=== PATIENT | female | born 1945 | race Caucasian/White ===

== ENCOUNTER → 2016-10-20 | Outpatient (CLI) | payer OTHER ==
[~2016-10-20] MED LIST: ALLO100T30 PO; ALLO300T PO; AMLO5TAB2 PO; ASPI-496 PO; ATOR40TA78 PO; ATOR80TA PO; BENICAR; CALC667C PO; CARV12.543 PO; CARV25TA12 PO; CHOL100015 PO; COLC0.6T37 PO; COREG; DARB100V SQ; ERGO500017 PO; FURO-92 PO; FURO-93 PO; FURO80TA3 PO; GLIP5TAB10 PO; HCTZ; HYDR-3240 PO; INSU100V12 SQ; INSU100V3 SQ-INSULIN; LEVO750T26 PO; LIRA0.6P2 SQ; LOSA50TA2 PO; METO5TAB5 PO; ONDA4TAB7 PO; OXYC-302 PO; POTA20TA14 PO; PREG75CA PO; SENN1TAB7 PO; SERT25TA PO; TORS20TA2 PO; TRAM50TA2 PO; VICTOZA PO; WARF2.5T PO; WARF5TAB PO; WARF7.5T PO
== END | disposition home or self-care (01) ==
LOC: CVU 12:16
PROVIDERS: ATTEND Nurse Practitioner Family
DX: I65.23 Occlusion and stenosis of bilateral carotid arteries (principal); I10 Essential (primary) hypertension; I25.2 Old myocardial infarction; Z95.5 Presence of coronary angioplasty implant and graft
CPT/HCPCS: 93880

== ENCOUNTER 2017-01-16 16:50 | Emergency (ER) | payer OTHER ==
[~2017-01-16] VITALS: Ht 152.4 cm; Wt 102.0 kg
[2017-01-16] MEDS ORDERED: SODIUM CHLORIDE FLUSH 10ML SYR IVF ONE (17:30)
[2017-01-16] MEDS ORDERED: LORazepam 2 MG/ML, 1ML IVPush ONE (17:30)
[2017-01-16] MEDS ORDERED: LORazepam 2 MG/ML, 1ML ONE (17:36)
[2017-01-16 17:39] LABS: BLOOD UREA NITROGEN 32 mg/dL (7-18)
[2017-01-16 17:43] LABS: ASPARTATE AMINO TRANSFERASE 25 U/L (15-37)
[2017-01-16 18:20] VITALS: BP 182/68
== END 2017-01-16 19:31 | disposition home or self-care (01) ==
LOC: ED 19:20
DX: R25.1 Tremor, unspecified (principal); F32.9 Major depressive disorder, single episode, unspecified; I12.9 Hypertensive chronic kidney disease with stage 1 through stage 4 chronic kidney disease, or unspecified chronic kidney disease; N18.4 Chronic kidney disease, stage 4 (severe); I11.0 Hypertensive heart disease with heart failure; I50.9 Heart failure, unspecified; E11.21 Type 2 diabetes mellitus with diabetic nephropathy; I25.2 Old myocardial infarction; Z99.2 Dependence on renal dialysis; Z86.718 Personal history of other venous thrombosis and embolism; Z86.73 Personal history of transient ischemic attack (TIA), and cerebral infarction without residual deficits; Z85.42 Personal history of malignant neoplasm of other parts of uterus; Z88.6 Allergy status to analgesic agent; Z88.5 Allergy status to narcotic agent
CPT/HCPCS: 36415; 71010; 80053; 83735; 85025; 93005; 96374; 99285; J2060

== ENCOUNTER → 2017-01-19 | Outpatient (CLI) | payer OTHER | END | disposition home or self-care (01) | LOC: CFH 12:08 | PROVIDERS: ATTEND Nurse Practitioner | DX: R91.8 Other nonspecific abnormal finding of lung field (principal); J96.11 Chronic respiratory failure with hypoxia | CPT/HCPCS: 71250 ==

== ENCOUNTER 2017-02-18 19:08 | Emergency (ER) | payer OTHER ==
[~2017-02-18] VITALS: Ht 152.4 cm; Wt 101.3 kg
[2017-02-18 20:50] LABS: BLOOD UREA NITROGEN 38 mg/dL (7-18)
[2017-02-18 20:51] LABS: HEMOGLOBIN 10.1 g/dL (11.7-16.4); WHITE BLOOD COUNT 5.9 x10^3/uL (3.4-10)
[2017-02-18 21:40] VITALS: BP 151/38
== END 2017-02-18 21:42 | disposition home or self-care (01) ==
LOC: ED 21:05
DX: K92.1 Melena (principal); D62 Acute posthemorrhagic anemia; I12.0 Hypertensive chronic kidney disease with stage 5 chronic kidney disease or end stage renal disease; D63.1 Anemia in chronic kidney disease; N18.6 End stage renal disease; M10.9 Gout, unspecified; I25.10 Atherosclerotic heart disease of native coronary artery without angina pectoris; Z79.82 Long term (current) use of aspirin; Z90.710 Acquired absence of both cervix and uterus
CPT/HCPCS: 36415; 80048; 82040; 85025; 85610; 99284

== ENCOUNTER 2017-08-23 10:41 | Day surgery (SDC) | payer OTHER ==
[~2017-08-23] VITALS: Ht 154.9 cm; Wt 102.3 kg
[2017-08-23] MEDS ORDERED: SODIUM CHLORIDE 0.9% 1,000 ML IV SCH (11:18)
[2017-08-23] MEDS ORDERED: FUROSEMIDE PO (11:25)
[2017-08-23] MEDS ORDERED: FUROSE (11:25)
[2017-08-23] MEDS ORDERED: LANTUS SQ (11:25)
[2017-08-23] MEDS ORDERED: METOLAZONE PO (11:25)
[2017-08-23] MEDS ORDERED: LIDOCAINE 1%, 2ML SQ PRN (11:30)
[2017-08-23] MEDS ORDERED: COUMADIN PO ×2 (11:32)
[2017-08-23 11:42] VITALS: BP 115/63
[2017-08-23 12:24] LABS: ALBUMIN 3.1 g/dL (3.4-5.0); ANION GAP 12 mmol/L (5-15); CALCIUM 8.3 mg/dL (8.5-10.1); CHLORIDE 97 mmol/L (98-107)
[2017-08-23 12:28] LABS: ALANINE AMINOTRANSFERASE 18 U/L (12-78); ALKALINE PHOSPHATASE 73 U/L (45-117); BILIRUBIN,TOTAL 0.6 mg/dL (0.2-1.0); CREATININE 6.39 mg/dL (0.55-1.02); TOTAL PROTEIN 6.9 g/dL (6.4-8.2)
[2017-08-23] MEDS ORDERED: FENTANYL PF 100 MCG/2ML IV PRN (12:30)
[2017-08-23] MEDS ORDERED: ONDANSETRON 2MG/ML, 2ML IVPush PRN (12:30)
[2017-08-23] MEDS ORDERED: FENTANYL PF 100 MCG/2ML ONE (13:32)
[2017-08-23] MEDS ORDERED: PROPOFOL 10 MG/ML, 20ML ONE (15:38)
== END 2017-08-23 15:00 ==
LOC: OUT 10:41
PROVIDERS: ATTEND Internal Medicine
DX: K57.30 Diverticulosis of large intestine without perforation or abscess without bleeding (principal); K92.1 Melena; D50.8 Other iron deficiency anemias; K64.8 Other hemorrhoids; I12.0 Hypertensive chronic kidney disease with stage 5 chronic kidney disease or end stage renal disease; N18.6 End stage renal disease; Z99.2 Dependence on renal dialysis; E11.22 Type 2 diabetes mellitus with diabetic chronic kidney disease; Z79.899 Other long term (current) drug therapy; Z79.4 Long term (current) use of insulin; Z90.710 Acquired absence of both cervix and uterus; Z98.890 Other specified postprocedural states; Z88.5 Allergy status to narcotic agent; Z88.8 Allergy status to other drugs, medicaments and biological substances; K21.9 Gastro-esophageal reflux disease without esophagitis; I25.10 Atherosclerotic heart disease of native coronary artery without angina pectoris; E66.01 Morbid (severe) obesity due to excess calories; Z68.41 Body mass index [BMI] 40.0-44.9, adult
CPT/HCPCS: 36415; 45378; 80053; 82962; 93005; J2704; J3010; J7030

== ENCOUNTER 2017-09-19 02:47 | Inpatient (IN) | payer OTHER ==
[2017-09-19] VITALS (7 sets, daily range): BP systolic 93–168; BP diastolic 55–77
[~2017-09-19] VITALS: Ht 154.9 cm; Wt 101.9 kg
[~2017-09-19 02:47] MED LIST changes: +COUMADIN PO; +FUROSE; +FUROSEMIDE PO; +LANTUS SQ; +METOLAZONE PO
[2017-09-19] MEDS ORDERED: ALBUTEROL SULFATE 2.5 MG/3 ML ONE ×2 (02:54→04:46)
[2017-09-19] MEDS ORDERED: ALBUTEROL/IPRATROPIUM 2.5MG/0.5MG, 3 ML ONE (02:54)
[2017-09-19] MEDS ORDERED: SODIUM CHLORIDE FLUSH 10ML SYR IVF ONE (03:00)
[2017-09-19] MEDS ORDERED: ALBUTEROL/IPRATROPIUM 2.5MG/0.5MG, 3 ML NPPB ONE (03:00)
[2017-09-19] MEDS ORDERED: ALBUTEROL SULFATE 2.5 MG/3 ML NPPB ONE ×2 (03:00→05:00)
[2017-09-19 03:09] LABS: BASOPHILS % (AUTO) 0 % (0-1); EOSINOPHILS # (AUTO) 0.09 x10^3/uL (0-0.4); EOSINOPHILS % (AUTO) 1 % (1-7); LYMPHOCYTES # (AUTO) 0.56 x10^3/uL (1-3.4); LYMPHOCYTES % (AUTO) 7 % (22-44); MD NO; MEAN CORPUSCULAR HEMOGLOBIN 33.6 pg (27.0-34.8); MEAN CORPUSCULAR VOLUME 98.9 fL (80-100); MEAN PLATELET VOLUME 9.4 fL (7.4-10.4); MONOCYTES % (AUTO) 7 % (2-9); NEUTROPHILS # (AUTO) 7.05 x10^3/uL (1.8-6.8); NEUTROPHILS % (AUTO) 85 % (42-75); PLATELET COUNT 112 x10^3/uL (130-400); RED BLOOD COUNT 3.53 x10^6/uL (3.82-5.3); RED CELL DISTRIBUTION WIDTH 15.4 % (9.6-15.2)
[2017-09-19 03:19] LABS: INTERNATIONAL NORMALIZED RATIO 2.28 (0.93-1.1); PROTHROMBIN TIME 23.3 Seconds (9.6-11.5)
[2017-09-19 03:21] LABS: ALANINE AMINOTRANSFERASE 22 U/L (12-78); ANION GAP 10 mmol/L (5-15); CALCIUM 7.6 mg/dL (8.5-10.1); CHLORIDE 94 mmol/L (98-107); CREATININE 9.36 mg/dL (0.55-1.02)
[2017-09-19 03:26] LABS: ALKALINE PHOSPHATASE 124 U/L (45-117); BILIRUBIN,TOTAL 0.4 mg/dL (0.2-1.0); TOTAL PROTEIN 7.4 g/dL (6.4-8.2); TROPONIN I 0.064 ng/mL (0.000-0.045)
[2017-09-19] MEDS ORDERED: methylPREDNISolone SOD SUCC 125 MG/2 ML IVPush ONE (03:30)
[2017-09-19] MEDS ORDERED: methylPREDNISolone SOD SUCC 125 MG/2 ML ONE (03:30)
[2017-09-19] MEDS ORDERED: INSULIN REGULAR 100 UNITS/ML, 3ML VIAL ONE (03:56)
[2017-09-19] MEDS ORDERED: SODIUM CHLORIDE 0.9%, 500ML IVBOLUS ONE (04:00)
[2017-09-19] MEDS ORDERED: INSULIN REGULAR 100 UNITS/ML, 3ML VIAL IVPush ONE (04:00)
[2017-09-19 04:27] LABS: ACETONE, SERUM Trace (10mg/dL) mg/dL (Negative)
[2017-09-19 05:36] LABS: ANION GAP 9 mmol/L (5-15); CALCIUM 7.6 mg/dL (8.5-10.1); CHLORIDE 99 mmol/L (98-107); CREATININE 9.58 mg/dL (0.55-1.02)
[2017-09-19] MEDS ORDERED: ALPR0.5T PO (06:08)
[2017-09-19] MEDS ORDERED: ONDANSETRON ODT 4 MG PO PRN (08:30)
[2017-09-19] MEDS ORDERED: FUROSEMIDE PO SCH (09:00)
[2017-09-19] MEDS ORDERED: METOLAZONE PO SCH (09:00)
[2017-09-19] MEDS: [UNRECOGNIZED DRUG - REMARK] MC SCH ×2 (09:30→16:27)
[2017-09-19] MEDS: CARVEDILOL 25 MG TABLET PO SCH ×2 (09:41→22:26)
[2017-09-19] MEDS: PREGABALIN 75 MG CAPSULE PO SCH (09:41)
[2017-09-19] MEDS: AMLODIPINE 5 MG TABLET PO SCH (09:41)
[2017-09-19] MEDS: SERTRALINE 50MG TABLET PO SCH (09:42)
[2017-09-19] MEDS: DOXYCYCLINE 100MG TABLET PO SCH ×2 (09:42→21:00)
[2017-09-19] MEDS: INSULIN GLARGINE 100 UNITS/ML, PEN SQ-INSULIN SCH ×2 (09:44→21:00)
[2017-09-19] MEDS: ASPIRIN 81 MG TABLET EC PO SCH (09:46)
[2017-09-19 11:00] LABS: HEMOGLOBIN A1C 8.4 % (4.2-6.3)
[2017-09-19] MEDS: INSULIN LISPRO 100 UNITS/ML, PEN SQ-INSULIN SCH ×3 (11:56→21:00)
[2017-09-19] MEDS ORDERED: FUROSEMIDE 40 MG/4 ML IV ONE (17:30)
[2017-09-19] MEDS ORDERED: METOLAZONE 5 MG TABLET PO ONE (17:30)
[2017-09-19] MEDS ORDERED: WARFARIN 7.5 MG TABLET PO-COUM ONE (18:00)
[2017-09-19] MEDS: ATORVASTATIN 80 MG TABLET PO SCH (21:00)
[2017-09-19] MEDS ORDERED: NITROGLYCERIN 0.4 MG BOTTLE (25 TABS) SL PRN (22:00)
[2017-09-20 05:53] VITALS: BP 143/72
[2017-09-20] MEDS: ASPIRIN 81 MG TABLET EC PO SCH (05:55)
[2017-09-20 06:00] LABS: BASOPHILS % (AUTO) 0 % (0-1); EOSINOPHILS % (AUTO) 0 % (1-7); LYMPHOCYTES # (AUTO) 0.38 x10^3/uL (1-3.4); LYMPHOCYTES % (AUTO) 5 % (22-44); MD NO; MEAN CORPUSCULAR HEMOGLOBIN 33.8 pg (27.0-34.8); MEAN CORPUSCULAR HGB CONC 33.9 g/dL (32.4-35.8); MEAN CORPUSCULAR VOLUME 99.9 fL (80-100); MEAN PLATELET VOLUME 9.4 fL (7.4-10.4); MONOCYTES # (AUTO) 0.58 x10^3/uL (0.2-0.8); MONOCYTES % (AUTO) 7 % (2-9); NEUTROPHILS # (AUTO) 7.05 x10^3/uL (1.8-6.8); NEUTROPHILS % (AUTO) 88 % (42-75); PLATELET COUNT 110 x10^3/uL (130-400); RED BLOOD COUNT 3.14 x10^6/uL (3.82-5.3); RED CELL DISTRIBUTION WIDTH 16.1 % (9.6-15.2)
[2017-09-20 06:05] LABS: INTERNATIONAL NORMALIZED RATIO 1.66 (0.93-1.1); PROTHROMBIN TIME 17.1 Seconds (9.6-11.5)
[2017-09-20 06:10] LABS: ALBUMIN 2.8 g/dL (3.4-5.0); ANION GAP 8 mmol/L (5-15); CHLORIDE 97 mmol/L (98-107); CHOLESTEROL, TOTAL 137 mg/dL (140-239); TRIGLYCERIDES 128 mg/dL (50-200); VLDL CHOLESTEROL 26 mg/dL (0-25)
[2017-09-20 06:21] LABS: % IRON SATURATION 44 % (20-55); ALANINE AMINOTRANSFERASE 21 U/L (12-78); ALKALINE PHOSPHATASE 85 U/L (45-117); BILIRUBIN,TOTAL 0.4 mg/dL (0.2-1.0); CHOL/HDL RATIO 3.3; CREATININE 7.03 mg/dL (0.55-1.02); HDL CHOL % 31 % (28-40); HDL CHOLESTEROL (DIRECT) 42 mg/dL (40-60); IRON LEVEL 74 mcg/dL (50-170); LDL CHOLESTEROL,CALCULATED 69 mg/dL (54-169); LDL/HDL RATIO 1.6 (0.5-3.0); THYROID STIMULATING HORMONE 0.688 mIU/L (0.358-3.740); TOTAL IRON BINDING CAPACITY 167 mcg/dL (250-450); TOTAL PROTEIN 6.9 g/dL (6.4-8.2)
[2017-09-20 07:22] VITALS: BP 133/72
[2017-09-20] MEDS: CARVEDILOL 25 MG TABLET PO SCH ×2 (08:55→21:43)
[2017-09-20] MEDS: DOXYCYCLINE 100MG TABLET PO SCH ×2 (08:56→21:43)
[2017-09-20] MEDS: SERTRALINE 50MG TABLET PO SCH (08:56)
[2017-09-20] MEDS: AMLODIPINE 5 MG TABLET PO SCH (08:56)
[2017-09-20] MEDS: INSULIN LISPRO 100 UNITS/ML, PEN SQ-INSULIN SCH ×4 (08:56→21:42)
[2017-09-20] MEDS: PREGABALIN 75 MG CAPSULE PO SCH (08:56)
[2017-09-20] MEDS: INSULIN GLARGINE 100 UNITS/ML, PEN SQ-INSULIN SCH ×2 (08:57→21:42)
[2017-09-20] MEDS ORDERED: ERGOCALCIFEROL 50,000 UNIT CAPSULE PO SCH (09:00)
[2017-09-20] MEDS: FUROSEMIDE 20 MG/2 ML IV SCH ×2 (09:17→21:43)
[2017-09-20] MEDS ORDERED: ACETAMINOPHEN 325 MG TABLET ONE (10:46)
[2017-09-20] MEDS: ACETAMINOPHEN 325 MG TABLET PO PRN (11:20)
[2017-09-20 12:53] VITALS: BP 126/70
[2017-09-20] MEDS ORDERED: WARFARIN 10 MG TABLET PO-COUM ONE (18:00)
[2017-09-20 18:40] VITALS: BP_SYST 88; BP_SYST 95; BP_DIAS 48; BP_DIAS 63
[2017-09-20] MEDS: ATORVASTATIN 80 MG TABLET PO SCH (21:43)
[2017-09-20] MEDS: FLUTICASONE NASAL SPRAY 16GM NAS SCH (22:41)
[2017-09-21 00:52] VITALS: BP 116/69
[2017-09-21] MEDS: ALBUTEROL SULFATE 2.5 MG/3 ML NPPB PRN ×2 (05:20→20:05)
[2017-09-21 05:21] LABS: BASOPHILS # (AUTO) 0.02 x10^3/uL (0-0.1); BASOPHILS % (AUTO) 0 % (0-1); EOSINOPHILS # (AUTO) 0.07 x10^3/uL (0-0.4); EOSINOPHILS % (AUTO) 1 % (1-7); LYMPHOCYTES # (AUTO) 0.81 x10^3/uL (1-3.4); LYMPHOCYTES % (AUTO) 14 % (22-44); MD NO; MEAN CORPUSCULAR HGB CONC 34.3 g/dL (32.4-35.8); MEAN CORPUSCULAR VOLUME 98.9 fL (80-100); MEAN PLATELET VOLUME 9.2 fL (7.4-10.4); MONOCYTES # (AUTO) 0.74 x10^3/uL (0.2-0.8); MONOCYTES % (AUTO) 13 % (2-9); NEUTROPHILS % (AUTO) 71 % (42-75); PLATELET COUNT 114 x10^3/uL (130-400); RED BLOOD COUNT 3.06 x10^6/uL (3.82-5.3)
[2017-09-21 05:31] LABS: ALBUMIN 2.8 g/dL (3.4-5.0); CHLORIDE 98 mmol/L (98-107)
[2017-09-21 05:37] LABS: ALANINE AMINOTRANSFERASE 19 U/L (12-78); ALKALINE PHOSPHATASE 77 U/L (45-117); ANION GAP 10 mmol/L (5-15); BILIRUBIN,TOTAL 0.4 mg/dL (0.2-1.0); CALCIUM 7.9 mg/dL (8.5-10.1); CREATININE 8.78 mg/dL (0.55-1.02); TOTAL PROTEIN 6.5 g/dL (6.4-8.2)
[2017-09-21] MEDS: ASPIRIN 81 MG TABLET EC PO SCH (06:10)
[2017-09-21 07:50] VITALS: BP 139/66
[2017-09-21] MEDS: INSULIN LISPRO 100 UNITS/ML, PEN SQ-INSULIN SCH ×4 (08:00→21:32)
[2017-09-21] MEDS ORDERED: REGADENOSON 0.4 MG/5 ML SYRINGE ONE (08:03)
[2017-09-21] MEDS: FUROSEMIDE 20 MG/2 ML IV SCH ×2 (09:00→21:30)
[2017-09-21] MEDS: AMLODIPINE 5 MG TABLET PO SCH (10:37)
[2017-09-21] MEDS: CARVEDILOL 25 MG TABLET PO SCH ×2 (10:37→22:21)
[2017-09-21] MEDS: SERTRALINE 50MG TABLET PO SCH (10:37)
[2017-09-21] MEDS: DOXYCYCLINE 100MG TABLET PO SCH ×2 (10:37→22:21)
[2017-09-21] MEDS: PREGABALIN 75 MG CAPSULE PO SCH (10:37)
[2017-09-21] MEDS: INSULIN GLARGINE 100 UNITS/ML, PEN SQ-INSULIN SCH ×2 (10:37→22:23)
[2017-09-21] MEDS: FLUTICASONE NASAL SPRAY 16GM NAS SCH (10:41)
[2017-09-21 15:00] VITALS: BP 122/45
[2017-09-21 18:55] LABS: INTERNATIONAL NORMALIZED RATIO 1.98 (0.93-1.1); PROTHROMBIN TIME 20.3 Seconds (9.6-11.5)
[2017-09-21 21:00] VITALS: BP 119/70
[2017-09-21] MEDS ORDERED: MAALOX/HYOSCYAMINE/LIDOCAINE 45 ML BTL PO ONE (22:00)
[2017-09-21] MEDS: BENZONATATE 100 MG CAPSULE PO PRN (22:20)
[2017-09-21] MEDS: ATORVASTATIN 80 MG TABLET PO SCH (22:21)
[2017-09-22 01:09] VITALS: BP 123/71
[2017-09-22 06:16] LABS: BASOPHILS # (AUTO) 0.02 x10^3/uL (0-0.1); BASOPHILS % (AUTO) 0 % (0-1); EOSINOPHILS % (AUTO) 2 % (1-7); LYMPHOCYTES # (AUTO) 0.95 x10^3/uL (1-3.4); LYMPHOCYTES % (AUTO) 17 % (22-44); MD NO; MEAN CORPUSCULAR HEMOGLOBIN 34.1 pg (27.0-34.8); MEAN CORPUSCULAR HGB CONC 34.6 g/dL (32.4-35.8); MEAN CORPUSCULAR VOLUME 98.7 fL (80-100); MEAN PLATELET VOLUME 8.8 fL (7.4-10.4); MONOCYTES # (AUTO) 0.78 x10^3/uL (0.2-0.8); MONOCYTES % (AUTO) 14 % (2-9); NEUTROPHILS # (AUTO) 3.76 x10^3/uL (1.8-6.8); NEUTROPHILS % (AUTO) 67 % (42-75); PLATELET COUNT 109 x10^3/uL (130-400); RED BLOOD COUNT 3.05 x10^6/uL (3.82-5.3); RED CELL DISTRIBUTION WIDTH 15.8 % (9.6-15.2)
[2017-09-22 06:22] LABS: INTERNATIONAL NORMALIZED RATIO 2.1 (0.93-1.1); PROTHROMBIN TIME 21.5 Seconds (9.6-11.5)
[2017-09-22 06:25] LABS: ALBUMIN 2.6 g/dL (3.4-5.0); ANION GAP 8 mmol/L (5-15); CALCIUM 7.6 mg/dL (8.5-10.1); CHLORIDE 100 mmol/L (98-107); CREATININE 6.12 mg/dL (0.55-1.02)
[2017-09-22] MEDS: ASPIRIN 81 MG TABLET EC PO SCH (06:27)
[2017-09-22] MEDS: ACETAMINOPHEN 325 MG TABLET PO PRN (06:27)
[2017-09-22 08:00] VITALS: BP 148/68
[2017-09-22] MEDS: FLUTICASONE NASAL SPRAY 16GM NAS SCH (09:00)
[2017-09-22] MEDS: INSULIN GLARGINE 100 UNITS/ML, PEN SQ-INSULIN SCH ×2 (09:00→20:50)
[2017-09-22] MEDS: INSULIN LISPRO 100 UNITS/ML, PEN SQ-INSULIN SCH ×4 (10:11→20:51)
[2017-09-22] MEDS: FUROSEMIDE 20 MG/2 ML IV SCH ×2 (10:13→20:35)
[2017-09-22] MEDS: PREGABALIN 75 MG CAPSULE PO SCH (10:14)
[2017-09-22] MEDS: SERTRALINE 50MG TABLET PO SCH (10:15)
[2017-09-22] MEDS: AMLODIPINE 5 MG TABLET PO SCH (10:16)
[2017-09-22] MEDS: DOXYCYCLINE 100MG TABLET PO SCH ×2 (10:16→20:36)
[2017-09-22] MEDS: CARVEDILOL 25 MG TABLET PO SCH ×2 (12:45→20:52)
[2017-09-22 14:00] VITALS: BP 117/46
[2017-09-22] MEDS ORDERED: WARFARIN 5 MG TABLET PO-COUM ONE (18:00)
[2017-09-22 18:33] VITALS: BP 119/68
[2017-09-22] MEDS: BENZONATATE 100 MG CAPSULE PO PRN (20:36)
[2017-09-22] MEDS: ATORVASTATIN 80 MG TABLET PO SCH (20:36)
[2017-09-23 00:34] VITALS: BP 134/50
[2017-09-23] MEDS: ACETAMINOPHEN 325 MG TABLET PO PRN (04:14)
[2017-09-23] MEDS: ASPIRIN 81 MG TABLET EC PO SCH (04:14)
[2017-09-23 05:23] LABS: INTERNATIONAL NORMALIZED RATIO 2.29 (0.93-1.1); PROTHROMBIN TIME 23.4 Seconds (9.6-11.5)
[2017-09-23 05:25] LABS: ALBUMIN 2.6 g/dL (3.4-5.0); ANION GAP 10 mmol/L (5-15); CALCIUM 7.5 mg/dL (8.5-10.1); CHLORIDE 97 mmol/L (98-107); CREATININE 7.79 mg/dL (0.55-1.02)
[2017-09-23 05:31] LABS: BASOPHILS # (AUTO) 0.02 x10^3/uL (0-0.1); BASOPHILS % (AUTO) 0 % (0-1); EOSINOPHILS % (AUTO) 4 % (1-7); LYMPHOCYTES # (AUTO) 1.06 x10^3/uL (1-3.4); LYMPHOCYTES % (AUTO) 20 % (22-44); MD NO; MEAN CORPUSCULAR HEMOGLOBIN 33.1 pg (27.0-34.8); MEAN CORPUSCULAR HGB CONC 33.9 g/dL (32.4-35.8); MEAN CORPUSCULAR VOLUME 97.7 fL (80-100); MEAN PLATELET VOLUME 9.3 fL (7.4-10.4); MONOCYTES # (AUTO) 0.61 x10^3/uL (0.2-0.8); MONOCYTES % (AUTO) 11 % (2-9); NEUTROPHILS % (AUTO) 65 % (42-75); PLATELET COUNT 110 x10^3/uL (130-400); RED BLOOD COUNT 3.14 x10^6/uL (3.82-5.3); RED CELL DISTRIBUTION WIDTH 15.6 % (9.6-15.2)
[2017-09-23] MEDS: BENZONATATE 100 MG CAPSULE PO PRN (06:39)
[2017-09-23 07:30] VITALS: BP 116/73
[2017-09-23] MEDS: CARVEDILOL 25 MG TABLET PO SCH (08:21)
[2017-09-23] MEDS: FUROSEMIDE 20 MG/2 ML IV SCH (08:21)
[2017-09-23] MEDS: AMLODIPINE 5 MG TABLET PO SCH (08:21)
[2017-09-23] MEDS: SERTRALINE 50MG TABLET PO SCH (08:26)
[2017-09-23] MEDS: PREGABALIN 75 MG CAPSULE PO SCH (08:26)
[2017-09-23] MEDS: DOXYCYCLINE 100MG TABLET PO SCH (08:26)
[2017-09-23] MEDS: INSULIN GLARGINE 100 UNITS/ML, PEN SQ-INSULIN SCH (08:27)
[2017-09-23] MEDS: FLUTICASONE NASAL SPRAY 16GM NAS SCH (08:28)
[2017-09-23] MEDS: INSULIN LISPRO 100 UNITS/ML, PEN SQ-INSULIN SCH ×2 (08:28→11:00)
[2017-09-23] MEDS ORDERED: DOXY100T PO (13:50)
[2017-09-23] MEDS ORDERED: ASPI-621 PO (13:50)
[2017-09-23] MEDS ORDERED: ERGO500017 PO (13:50)
[2017-09-23] MEDS ORDERED: WARFARIN 5 MG TABLET PO-COUM ONE (18:00)
== END 2017-09-23 15:12 | disposition home or self-care (01) | DRG 280 ==
LOC: ED 03:45 → EDIP 05:08 → 5SO 05:51
PROVIDERS: ADMIT Internal Medicine; ATTEND Internal Medicine
PROC: 5A1D70Z Performance of Urinary Filtration, Intermittent, Less than 6 Hours Per Day (ICD-10-PCS; principal; 2017-09-19)
PROC: 5A1D70Z Performance of Urinary Filtration, Intermittent, Less than 6 Hours Per Day (ICD-10-PCS; 2017-09-21)
PROC: 5A1D70Z Performance of Urinary Filtration, Intermittent, Less than 6 Hours Per Day (ICD-10-PCS; 2017-09-23)
DX: I13.2 Hypertensive heart and chronic kidney disease with heart failure and with stage 5 chronic kidney disease, or end stage renal disease (principal); J96.21 Acute and chronic respiratory failure with hypoxia; I21.4 Non-ST elevation (NSTEMI) myocardial infarction; E44.0 Moderate protein-calorie malnutrition; D68.69 Other thrombophilia; D69.6 Thrombocytopenia, unspecified; E11.21 Type 2 diabetes mellitus with diabetic nephropathy; N18.6 End stage renal disease; I50.33 Acute on chronic diastolic (congestive) heart failure; E87.2 Acidosis; E87.1 Hypo-osmolality and hyponatremia; Z68.41 Body mass index [BMI] 40.0-44.9, adult; N25.81 Secondary hyperparathyroidism of renal origin; J44.1 Chronic obstructive pulmonary disease with (acute) exacerbation; E11.22 Type 2 diabetes mellitus with diabetic chronic kidney disease; C54.1 Malignant neoplasm of endometrium; I25.10 Atherosclerotic heart disease of native coronary artery without angina pectoris; D63.1 Anemia in chronic kidney disease; E11.51 Type 2 diabetes mellitus with diabetic peripheral angiopathy without gangrene; E11.65 Type 2 diabetes mellitus with hyperglycemia; N25.0 Renal osteodystrophy; J11.1 Influenza due to unidentified influenza virus with other respiratory manifestations; M10.9 Gout, unspecified; E66.01 Morbid (severe) obesity due to excess calories; E78.5 Hyperlipidemia, unspecified; E86.1 Hypovolemia; E87.5 Hyperkalemia; Z99.81 Dependence on supplemental oxygen; Z99.2 Dependence on renal dialysis; Z98.84 Bariatric surgery status; Z95.820 Peripheral vascular angioplasty status with implants and grafts; Z95.5 Presence of coronary angioplasty implant and graft; Z90.3 Acquired absence of stomach [part of]; Z87.891 Personal history of nicotine dependence; Z87.441 Personal history of nephrotic syndrome; Z90.710 Acquired absence of both cervix and uterus; Z87.01 Personal history of pneumonia (recurrent); Z79.01 Long term (current) use of anticoagulants; Z79.4 Long term (current) use of insulin; Z85.42 Personal history of malignant neoplasm of other parts of uterus; Z86.711 Personal history of pulmonary embolism; Z86.718 Personal history of other venous thrombosis and embolism; I25.2 Old myocardial infarction; Z79.899 Other long term (current) drug therapy; Z79.82 Long term (current) use of aspirin
CPT/HCPCS: 36415; 36600; 71045; 78452; 80048; 80053; 80061; 80069; 82010; 82306; 82728; 82800; 82803; 82947; 82962; 83036; 83540; 83550; 83605; 83735; 83880; 83970; 84100; 84443; 84484; 84550; 85025; 85610; 85730; 87081; 87880; 93005; 93017; 93306; 94640; 96361; 96374; 96375; J1940; J2785; J7613; J7620; A9502; C9898; J1815; J2930; J7040

== ENCOUNTER 2017-11-06 13:12 | Inpatient (IN) | payer OTHER ==
[~2017-11-06] VITALS: Ht 154.9 cm; Wt 93.1 kg
[~2017-11-06 13:12] MED LIST changes: +ACET325T14 PO; +ALPR0.5T PO; +ASPI-621 PO; +BISA10SU65 PR; +CARV6.2512 PO; +DARB60VI SQ; +DOXY100T PO; +INSU100I11 SQ-INSULIN; +INSU100I13 SQ-INSULIN; +INSU100V3 SQ; +LOSA25TA2 PO; +LOSA50TA6 PO; +NITROGLYCERIN; +OMEP-110 PO; +ONDA4TAB13 PO; +PANTOPRA; +PANTOPRAZOLE; +POLY17PO5 PO; +SERT50TA PO; +SEVE800T7 PO; +TICA90TA PO; +TRAZODONE; +WARF5TAB PO-COUM; +Warfarin Maintenance Protocol XX
[2017-11-06 14:21] LABS: BASOPHILS # (AUTO) 0.02 x10^3/uL (0-0.1); BASOPHILS % (AUTO) 0 % (0-1); EOSINOPHILS # (AUTO) 0.09 x10^3/uL (0-0.4); EOSINOPHILS % (AUTO) 1 % (1-7); LYMPHOCYTES # (AUTO) 0.76 x10^3/uL (1-3.4); LYMPHOCYTES % (AUTO) 8 % (22-44); MD NO; MEAN CORPUSCULAR HEMOGLOBIN 34.2 pg (27.0-34.8); MEAN CORPUSCULAR HGB CONC 34.5 g/dL (32.4-35.8); MEAN CORPUSCULAR VOLUME 99.2 fL (80-100); MEAN PLATELET VOLUME 7.7 fL (7.4-10.4); MONOCYTES # (AUTO) 0.57 x10^3/uL (0.2-0.8); MONOCYTES % (AUTO) 6 % (2-9); NEUTROPHILS # (AUTO) 8.11 x10^3/uL (1.8-6.8); NEUTROPHILS % (AUTO) 85 % (42-75); PLATELET COUNT 221 x10^3/uL (130-400); RED BLOOD COUNT 2.87 x10^6/uL (3.82-5.3)
[2017-11-06 14:32] LABS: ALBUMIN 2.9 g/dL (3.4-5.0); ANION GAP 14 mmol/L (5-15); CALCIUM 8.6 mg/dL (8.5-10.1); CHLORIDE 96 mmol/L (98-107); CREATININE 9.12 mg/dL (0.55-1.02)
[2017-11-06 14:36] LABS: TROPONIN I 0.065 ng/mL (0.000-0.045)
[2017-11-06 14:38] LABS: INTERNATIONAL NORMALIZED RATIO 10.53 (0.93-1.1); PROTHROMBIN TIME 104.6 Seconds (9.6-11.5)
[2017-11-06] MEDS ORDERED: PHYTONADIONE 10 MG/ML, 1ML ONE (14:53)
[2017-11-06] MEDS ORDERED: PHYTONADIONE 10 MG/ML, 1ML IM ONE (15:00)
[2017-11-06] MEDS ORDERED: DARBEPOETIN 60 MCG/ML SQ SCH (17:00)
[2017-11-06] MEDS ORDERED: ENALAPRILAT 1.25 MG/ML, 2ML IVPush PRN (17:00)
[2017-11-06] MEDS ORDERED: ONDANSETRON 2MG/ML, 2ML IVPush PRN (17:00)
[2017-11-06] MEDS ORDERED: HYDROcodone/APAP 5/325 TABLET PO PRN (17:00)
[2017-11-06] MEDS ORDERED: ACETAMINOPHEN 325 MG TABLET PO PRN (17:00)
[2017-11-06] MEDS ORDERED: BISACODYL 10 MG SUPP PR PRN (17:00)
[2017-11-06] MEDS ORDERED: hydrALAzine 20 MG/ML, 1ML IVPush PRN (17:00)
[2017-11-06] MEDS ORDERED: DEXTROSE 50%, 50ML SYRINGE IVPush PRN (17:30)
[2017-11-06] MEDS ORDERED: GLUCAGON 1 MG IM PRN (17:30)
[2017-11-06] MEDS ORDERED: DEXTROSE 4 GM TAB.CHEW PO PRN (17:30)
[2017-11-06] MEDS: CARVEDILOL 6.25 MG TABLET PO SCH (18:05)
[2017-11-06] MEDS: ISOSORBIDE MONONITRATE ER 30 MG TABLET PO SCH (18:50)
[2017-11-06 18:59] VITALS: BP 151/80
[2017-11-06 20:27] LABS: TROPONIN I 0.057 ng/mL (0.000-0.045)
[2017-11-06] MEDS: TICAGRELOR 90 MG TABLET PO SCH (21:44)
[2017-11-06] MEDS: ATORVASTATIN 80 MG TABLET PO SCH (21:44)
[2017-11-06] MEDS: DOCUSATE 100 MG CAPSULE PO SCH (21:44)
[2017-11-06] MEDS: INSULIN LISPRO 100 UNITS/ML, PEN SQ-INSULIN SCH (22:13)
[2017-11-06] MEDS: SODIUM CHLORIDE FLUSH 10ML SYR IVF SCH (22:13)
[2017-11-06] MEDS: INSULIN GLARGINE 100 UNITS/ML, PEN SQ-INSULIN SCH (22:13)
[2017-11-06] MEDS: SEVELAMER HCL 800MG TABLET PO SCH (22:15)
[2017-11-07 02:10] VITALS: BP 118/69
[2017-11-07 02:29] LABS: ANION GAP 11 mmol/L (5-15); CALCIUM 8.2 mg/dL (8.5-10.1); CHLORIDE 98 mmol/L (98-107); CREATININE 9.72 mg/dL (0.55-1.02)
[2017-11-07 02:34] LABS: TROPONIN I 0.054 ng/mL (0.000-0.045)
[2017-11-07 02:47] LABS: BASOPHILS # (AUTO) 0.05 x10^3/uL (0-0.1); BASOPHILS % (AUTO) 1 % (0-1); EOSINOPHILS # (AUTO) 0.14 x10^3/uL (0-0.4); EOSINOPHILS % (AUTO) 2 % (1-7); LYMPHOCYTES % (AUTO) 16 % (22-44); MD NO; MEAN CORPUSCULAR HEMOGLOBIN 32.7 pg (27.0-34.8); MEAN CORPUSCULAR HGB CONC 33.1 g/dL (32.4-35.8); MEAN CORPUSCULAR VOLUME 98.8 fL (80-100); MEAN PLATELET VOLUME 7.6 fL (7.4-10.4); MONOCYTES # (AUTO) 0.49 x10^3/uL (0.2-0.8); MONOCYTES % (AUTO) 7 % (2-9); NEUTROPHILS # (AUTO) 5.31 x10^3/uL (1.8-6.8); NEUTROPHILS % (AUTO) 75 % (42-75); PLATELET COUNT 215 x10^3/uL (130-400); RED BLOOD COUNT 2.75 x10^6/uL (3.82-5.3); RED CELL DISTRIBUTION WIDTH 16.3 % (9.6-15.2)
[2017-11-07 02:50] LABS: INTERNATIONAL NORMALIZED RATIO 7.51 (0.93-1.1); PROTHROMBIN TIME 75.1 Seconds (9.6-11.5)
[2017-11-07] MEDS: CARVEDILOL 6.25 MG TABLET PO SCH ×2 (06:00→08:28)
[2017-11-07] MEDS: INSULIN LISPRO 100 UNITS/ML, PEN SQ-INSULIN SCH ×4 (07:00→21:00)
[2017-11-07 08:19] VITALS: BP 101/64
[2017-11-07] MEDS ORDERED: SERTRALINE 100MG TABLET ONE (08:33)
[2017-11-07] MEDS: SENNA/DOCUSATE TABLET PO SCH (08:42)
[2017-11-07] MEDS: SODIUM CHLORIDE FLUSH 10ML SYR IVF SCH ×2 (08:49→20:58)
[2017-11-07] MEDS: PANTOPRAZOLE 40 MG IV IVPush SCH (08:50)
[2017-11-07] MEDS: TICAGRELOR 90 MG TABLET PO SCH ×2 (08:51→20:58)
[2017-11-07] MEDS: SEVELAMER HCL 800MG TABLET PO SCH ×3 (08:52→16:53)
[2017-11-07] MEDS: PREGABALIN 75 MG CAPSULE PO SCH (08:53)
[2017-11-07] MEDS: DOCUSATE 100 MG CAPSULE PO SCH ×2 (08:54→20:58)
[2017-11-07] MEDS: LOSARTAN 25MG TABLET PO SCH (08:54)
[2017-11-07] MEDS: SERTRALINE 50MG TABLET PO SCH (08:54)
[2017-11-07] MEDS ORDERED: DARBEPOETIN 60 MCG/ML SQ SCH (10:00)
[2017-11-07] MEDS ORDERED: ONDANSETRON 4 MG TABLET ONE (11:48)
[2017-11-07 16:26] VITALS: BP 155/65
[2017-11-07 18:38] VITALS: BP 129/70
[2017-11-07] MEDS: INSULIN GLARGINE 100 UNITS/ML, PEN SQ-INSULIN SCH (20:56)
[2017-11-07] MEDS: POLYETHYLENE GLYCOL 17 GM PACKET PO SCH (20:58)
[2017-11-07] MEDS: ISOSORBIDE MONONITRATE ER 30 MG TABLET PO SCH (20:58)
[2017-11-07] MEDS: ATORVASTATIN 80 MG TABLET PO SCH (20:58)
[2017-11-08 01:27] VITALS: BP 151/74
[2017-11-08 04:59] LABS: INTERNATIONAL NORMALIZED RATIO 1.42 (0.93-1.1); PROTHROMBIN TIME 14.7 Seconds (9.6-11.5)
[2017-11-08 05:00] LABS: BASOPHILS # (AUTO) 0.03 x10^3/uL (0-0.1); BASOPHILS % (AUTO) 0 % (0-1); EOSINOPHILS # (AUTO) 0.17 x10^3/uL (0-0.4); EOSINOPHILS % (AUTO) 2 % (1-7); LYMPHOCYTES # (AUTO) 0.94 x10^3/uL (1-3.4); LYMPHOCYTES % (AUTO) 12 % (22-44); MD NO; MEAN CORPUSCULAR HEMOGLOBIN 33.7 pg (27.0-34.8); MEAN CORPUSCULAR HGB CONC 33.8 g/dL (32.4-35.8); MEAN CORPUSCULAR VOLUME 99.8 fL (80-100); MEAN PLATELET VOLUME 7.7 fL (7.4-10.4); MONOCYTES # (AUTO) 0.52 x10^3/uL (0.2-0.8); MONOCYTES % (AUTO) 7 % (2-9); NEUTROPHILS # (AUTO) 5.95 x10^3/uL (1.8-6.8); NEUTROPHILS % (AUTO) 78 % (42-75); PLATELET COUNT 207 x10^3/uL (130-400); RED BLOOD COUNT 2.71 x10^6/uL (3.82-5.3); RED CELL DISTRIBUTION WIDTH 16.7 % (9.6-15.2)
[2017-11-08 05:04] LABS: ALBUMIN 2.8 g/dL (3.4-5.0); ANION GAP 7 mmol/L (5-15); CALCIUM 7.9 mg/dL (8.5-10.1); CHLORIDE 97 mmol/L (98-107)
[2017-11-08 08:00] VITALS: BP 142/71
[2017-11-08] MEDS: INSULIN LISPRO 100 UNITS/ML, PEN SQ-INSULIN SCH ×4 (08:23→21:00)
[2017-11-08] MEDS ORDERED: SERTRALINE 100MG TABLET ONE (09:45)
[2017-11-08] MEDS: SEVELAMER HCL 800MG TABLET PO SCH ×3 (09:50→16:20)
[2017-11-08] MEDS: LOSARTAN 25MG TABLET PO SCH (09:50)
[2017-11-08] MEDS: SERTRALINE 50MG TABLET PO SCH (09:50)
[2017-11-08] MEDS: POLYETHYLENE GLYCOL 17 GM PACKET PO SCH (09:51)
[2017-11-08] MEDS: DOCUSATE 100 MG CAPSULE PO SCH ×2 (09:51→21:15)
[2017-11-08] MEDS: SODIUM CHLORIDE FLUSH 10ML SYR IVF SCH ×2 (09:51→21:15)
[2017-11-08] MEDS: SENNA/DOCUSATE TABLET PO SCH (09:51)
[2017-11-08] MEDS: PREGABALIN 75 MG CAPSULE PO SCH (09:51)
[2017-11-08] MEDS: TICAGRELOR 90 MG TABLET PO SCH ×2 (09:51→21:15)
[2017-11-08] MEDS: ISOSORBIDE MONONITRATE ER 30 MG TABLET PO SCH (09:51)
[2017-11-08] MEDS: PANTOPRAZOLE 40 MG IV IVPush SCH (09:59)
[2017-11-08 14:45] VITALS: BP 140/78
[2017-11-08] MEDS ORDERED: ISOS30TA8 PO (15:59)
[2017-11-08 16:02] VITALS: BP 140/78
[2017-11-08] MEDS ORDERED: WARFARIN 5 MG TABLET PO-COUM ONE (18:00)
[2017-11-08 19:06] VITALS: BP 134/71
[2017-11-08] MEDS: ATORVASTATIN 80 MG TABLET PO SCH (21:15)
[2017-11-08] MEDS: INSULIN GLARGINE 100 UNITS/ML, PEN SQ-INSULIN SCH (21:19)
[2017-11-09 03:32] VITALS: BP 143/71
[2017-11-09 05:37] LABS: INTERNATIONAL NORMALIZED RATIO 1.16 (0.93-1.1)
[2017-11-09 06:55] VITALS: BP 128/72
[2017-11-09] MEDS ORDERED: PANTOPROZOLE 40MG TABLET PO SCH (07:30)
[2017-11-09] MEDS: INSULIN LISPRO 100 UNITS/ML, PEN SQ-INSULIN SCH ×2 (07:46→13:03)
[2017-11-09] MEDS: SEVELAMER HCL 800MG TABLET PO SCH ×2 (08:05→12:50)
[2017-11-09 08:24] VITALS: BP 125/68
[2017-11-09] MEDS ORDERED: SERTRALINE 100MG TABLET ONE (11:51)
[2017-11-09] MEDS: LOSARTAN 25MG TABLET PO SCH (12:50)
[2017-11-09] MEDS: PREGABALIN 75 MG CAPSULE PO SCH (12:50)
[2017-11-09] MEDS: SODIUM CHLORIDE FLUSH 10ML SYR IVF SCH (12:51)
[2017-11-09] MEDS: SERTRALINE 50MG TABLET PO SCH (12:51)
[2017-11-09] MEDS: POLYETHYLENE GLYCOL 17 GM PACKET PO SCH (12:51)
[2017-11-09] MEDS: DOCUSATE 100 MG CAPSULE PO SCH (12:51)
[2017-11-09] MEDS: ISOSORBIDE MONONITRATE ER 30 MG TABLET PO SCH (12:51)
[2017-11-09] MEDS: TICAGRELOR 90 MG TABLET PO SCH (12:51)
[2017-11-09] MEDS: SENNA/DOCUSATE TABLET PO SCH (12:51)
[2017-11-09] MEDS ORDERED: WARFARIN 5 MG TABLET PO-COUM SCH (18:00)
== END 2017-11-09 14:40 | disposition home or self-care (01) | DRG 302 ==
LOC: ED 14:11 → EDIP 14:41 → 5SO 17:00
PROVIDERS: ADMIT Hospitalist; ATTEND Hospitalist
PROC: 5A1D70Z Performance of Urinary Filtration, Intermittent, Less than 6 Hours Per Day (ICD-10-PCS; 2017-11-07)
PROC: 5A1D70Z Performance of Urinary Filtration, Intermittent, Less than 6 Hours Per Day (ICD-10-PCS; principal; 2017-11-09)
DX: I25.10 Atherosclerotic heart disease of native coronary artery without angina pectoris (principal); E43 Unspecified severe protein-calorie malnutrition; I13.2 Hypertensive heart and chronic kidney disease with heart failure and with stage 5 chronic kidney disease, or end stage renal disease; J96.10 Chronic respiratory failure, unspecified whether with hypoxia or hypercapnia; D68.59 Other primary thrombophilia; E11.22 Type 2 diabetes mellitus with diabetic chronic kidney disease; I42.9 Cardiomyopathy, unspecified; E11.51 Type 2 diabetes mellitus with diabetic peripheral angiopathy without gangrene; N18.6 End stage renal disease; I50.32 Chronic diastolic (congestive) heart failure; N25.81 Secondary hyperparathyroidism of renal origin; I69.354 Hemiplegia and hemiparesis following cerebral infarction affecting left non-dominant side; E66.01 Morbid (severe) obesity due to excess calories; R00.1 Bradycardia, unspecified; Z88.6 Allergy status to analgesic agent; Z88.8 Allergy status to other drugs, medicaments and biological substances; Z68.38 Body mass index [BMI] 38.0-38.9, adult; D63.1 Anemia in chronic kidney disease; E55.9 Vitamin D deficiency, unspecified; E78.5 Hyperlipidemia, unspecified; F32.9 Major depressive disorder, single episode, unspecified; I25.5 Ischemic cardiomyopathy; J44.9 Chronic obstructive pulmonary disease, unspecified; N25.0 Renal osteodystrophy; Z79.01 Long term (current) use of anticoagulants; T45.515A Adverse effect of anticoagulants, initial encounter; Z82.49 Family history of ischemic heart disease and other diseases of the circulatory system; Z85.42 Personal history of malignant neoplasm of other parts of uterus; Z86.711 Personal history of pulmonary embolism; Z86.718 Personal history of other venous thrombosis and embolism; Z87.891 Personal history of nicotine dependence; Z90.3 Acquired absence of stomach [part of]; Z90.710 Acquired absence of both cervix and uterus; Z98.61 Coronary angioplasty status; Z98.84 Bariatric surgery status; Z99.2 Dependence on renal dialysis; Z99.81 Dependence on supplemental oxygen
CPT/HCPCS: 36415; 71045; 80048; 80069; 82040; 82962; 83735; 84100; 84484; 85025; 85610; 86705; 86706; 87340; 93005; 96372; 99285; J0881; J2405; J3430; C9113; J1815

== ENCOUNTER 2017-11-10 13:40 | Emergency (ER) | payer OTHER ==
[~2017-11-10] VITALS: Ht 154.9 cm; Wt 115.9 kg
[~2017-11-10 13:40] MED LIST changes: +ISOS30TA8 PO
[2017-11-10 14:57] LABS: BASOPHILS # (AUTO) 0.05 x10^3/uL (0-0.1); BASOPHILS % (AUTO) 1 % (0-1); EOSINOPHILS # (AUTO) 0.09 x10^3/uL (0-0.4); EOSINOPHILS % (AUTO) 1 % (1-7); LYMPHOCYTES # (AUTO) 0.71 x10^3/uL (1-3.4); LYMPHOCYTES % (AUTO) 8 % (22-44); MEAN CORPUSCULAR HEMOGLOBIN 33.3 pg (27.0-34.8); MEAN CORPUSCULAR HGB CONC 33.5 g/dL (32.4-35.8); MEAN CORPUSCULAR VOLUME 99.4 fL (80-100); MEAN PLATELET VOLUME 7.8 fL (7.4-10.4); MONOCYTES # (AUTO) 0.64 x10^3/uL (0.2-0.8); MONOCYTES % (AUTO) 7 % (2-9); NEUTROPHILS # (AUTO) 7.91 x10^3/uL (1.8-6.8); NEUTROPHILS % (AUTO) 84 % (42-75); PLATELET COUNT 197 x10^3/uL (130-400); RED BLOOD COUNT 2.76 x10^6/uL (3.82-5.3); RED CELL DISTRIBUTION WIDTH 16.8 % (9.6-15.2)
[2017-11-10 14:58] LABS: MD NO
[2017-11-10 14:59] LABS: ALBUMIN 2.8 g/dL (3.4-5.0); ANION GAP 11 mmol/L (5-15); CHLORIDE 96 mmol/L (98-107)
[2017-11-10] MEDS ORDERED: AZITHROMYCIN 500 MG in SODIUM CHLORIDE 0.9% 250 ML IV ONE (15:00)
[2017-11-10] MEDS ORDERED: CEFTRIAXONE PMX 1GM/50ML 50 ML IVPB ONE (15:00)
[2017-11-10 15:02] LABS: TROPONIN I 0.019 ng/mL (0.000-0.045)
[2017-11-10] MEDS ORDERED: CEFTRIAXONE PMX 1GM/50ML 50 ML ONE (15:10)
[2017-11-10] MEDS ORDERED: ACETAMINOPHEN 500 MG TABLET ONE (15:46)
[2017-11-10] MEDS ORDERED: ACETAMINOPHEN 325 MG TABLET PO ONE (16:30)
[2017-11-10 17:16] VITALS: BP 161/53
== END 2017-11-10 18:11 | disposition home or self-care (01) ==
LOC: ED 18:04
DX: R07.2 Precordial pain (principal); R11.0 Nausea; I13.0 Hypertensive heart and chronic kidney disease with heart failure and stage 1 through stage 4 chronic kidney disease, or unspecified chronic kidney disease; E11.22 Type 2 diabetes mellitus with diabetic chronic kidney disease; N18.4 Chronic kidney disease, stage 4 (severe); I50.9 Heart failure, unspecified; Z86.711 Personal history of pulmonary embolism; Z86.718 Personal history of other venous thrombosis and embolism; I25.2 Old myocardial infarction; Z90.710 Acquired absence of both cervix and uterus; I25.10 Atherosclerotic heart disease of native coronary artery without angina pectoris
CPT/HCPCS: 36415; 71045; 80048; 82040; 83605; 84484; 85025; 93005; 96365; 99285; J0696

== ENCOUNTER 2017-11-22 14:29 | Inpatient (IN) | payer OTHER ==
[~2017-11-22] VITALS: Ht 154.9 cm; Wt 92.1 kg
[2017-11-22] MEDS ORDERED: SODIUM CHLORIDE FLUSH 10ML SYR IVF ONE (15:00)
[2017-11-22 15:39] LABS: BASOPHILS # (AUTO) 0.02 x10^3/uL (0-0.1); BASOPHILS % (AUTO) 0 % (0-1); EOSINOPHILS # (AUTO) 0.14 x10^3/uL (0-0.4); EOSINOPHILS % (AUTO) 2 % (1-7); LYMPHOCYTES # (AUTO) 0.83 x10^3/uL (1-3.4); LYMPHOCYTES % (AUTO) 12 % (22-44); MD NO; MEAN CORPUSCULAR HEMOGLOBIN 34.4 pg (27.0-34.8); MEAN CORPUSCULAR HGB CONC 33.4 g/dL (32.4-35.8); MEAN PLATELET VOLUME 8.3 fL (7.4-10.4); MONOCYTES # (AUTO) 0.47 x10^3/uL (0.2-0.8); MONOCYTES % (AUTO) 7 % (2-9); NEUTROPHILS # (AUTO) 5.57 x10^3/uL (1.8-6.8); NEUTROPHILS % (AUTO) 79 % (42-75); PLATELET COUNT 141 x10^3/uL (130-400); RED BLOOD COUNT 2.88 x10^6/uL (3.82-5.3); RED CELL DISTRIBUTION WIDTH 18.6 % (9.6-15.2)
[2017-11-22 15:47] LABS: ALANINE AMINOTRANSFERASE 13 U/L (12-78); ALBUMIN 2.8 g/dL (3.4-5.0); ANION GAP 9 mmol/L (5-15); CALCIUM 8.4 mg/dL (8.5-10.1); CHLORIDE 97 mmol/L (98-107)
[2017-11-22 15:49] LABS: ALKALINE PHOSPHATASE 72 U/L (45-117); BILIRUBIN,TOTAL 0.5 mg/dL (0.2-1.0); TOTAL PROTEIN 6.7 g/dL (6.4-8.2)
[2017-11-22 15:50] LABS: MICROSCOPIC INDICATED
[2017-11-22 15:51] LABS: CULTURE INDICATED? YES
[2017-11-22 16:05] LABS: ACETONE, SERUM Trace (10mg/dL) mg/dL (Negative)
[2017-11-22] MEDS ORDERED: hydrALAzine 20 MG/ML, 1ML IVPush PRN (16:30)
[2017-11-22] MEDS ORDERED: POLYETHYLENE GLYCOL 17 GM PACKET PO PRN (16:30)
[2017-11-22] MEDS ORDERED: CEFTRIAXONE PMX 1GM/50ML 50 ML IV SCH (16:30)
[2017-11-22] MEDS ORDERED: HYDROcodone/APAP 5/325 TABLET PO PRN (16:30)
[2017-11-22] MEDS ORDERED: ONDANSETRON 2MG/ML, 2ML IVPush PRN (16:30)
[2017-11-22] MEDS ORDERED: ONDANSETRON ODT 4 MG PO PRN (16:30)
[2017-11-22] MEDS ORDERED: ACETAMINOPHEN 325 MG TABLET PO PRN (16:30)
[2017-11-22] MEDS ORDERED: BISACODYL 10 MG SUPP PR PRN (16:30)
[2017-11-22 16:57] LABS: INTERNATIONAL NORMALIZED RATIO 6.64 (0.93-1.1)
[2017-11-22 17:00] LABS: PROTHROMBIN TIME 66.5 Seconds (9.6-11.5)
[2017-11-22] MEDS ORDERED: SEVELAMER CARBONATE 800MG TAB PO SCH (17:00)
[2017-11-22] MEDS ORDERED: GLUCAGON 1 MG IM PRN (17:00)
[2017-11-22] MEDS ORDERED: DEXTROSE 4 GM TAB.CHEW PO PRN (17:00)
[2017-11-22] MEDS ORDERED: DEXTROSE 50%, 50ML SYRINGE IVPush PRN (17:00)
[2017-11-22] MEDS ORDERED: SEVELAMER HCL 800MG TABLET PO SCH (17:00)
[2017-11-22] MEDS ORDERED: CEFTRIAXONE PMX 1GM/50ML 50 ML ONE (17:17)
[2017-11-22] MEDS ORDERED: PHARMACY MAY ADJ FOR RENAL FX MC PRN (18:00)
[2017-11-22] MEDS ORDERED: DARBEPOETIN 60 MCG/ML SQ SCH (19:00)
[2017-11-22 20:32] VITALS: BP 110/68
[2017-11-22] MEDS: INSULIN LISPRO 100 UNITS/ML, PEN SQ-INSULIN SCH (21:00)
[2017-11-22] MEDS: SODIUM CHLORIDE FLUSH 10ML SYR IVF SCH (22:27)
[2017-11-22] MEDS: DOCUSATE 100 MG CAPSULE PO SCH (22:27)
[2017-11-22] MEDS: TICAGRELOR 90 MG TABLET PO SCH (22:29)
[2017-11-22] MEDS: ATORVASTATIN 80 MG TABLET PO SCH (22:29)
[2017-11-22] MEDS: INSULIN GLARGINE 100 UNITS/ML, PEN SQ-INSULIN SCH (23:11)
[2017-11-23 01:56] VITALS: BP 114/65
[2017-11-23 05:23] LABS: BASOPHILS # (AUTO) 0.02 x10^3/uL (0-0.1); BASOPHILS % (AUTO) 0 % (0-1); EOSINOPHILS # (AUTO) 0.13 x10^3/uL (0-0.4); EOSINOPHILS % (AUTO) 2 % (1-7); LYMPHOCYTES # (AUTO) 0.87 x10^3/uL (1-3.4); LYMPHOCYTES % (AUTO) 13 % (22-44); MD NO; MEAN CORPUSCULAR HEMOGLOBIN 33.9 pg (27.0-34.8); MEAN CORPUSCULAR HGB CONC 33.3 g/dL (32.4-35.8); MEAN PLATELET VOLUME 8.1 fL (7.4-10.4); MONOCYTES # (AUTO) 0.54 x10^3/uL (0.2-0.8); MONOCYTES % (AUTO) 8 % (2-9); NEUTROPHILS % (AUTO) 77 % (42-75); PLATELET COUNT 119 x10^3/uL (130-400); RED BLOOD COUNT 2.67 x10^6/uL (3.82-5.3); RED CELL DISTRIBUTION WIDTH 18.6 % (9.6-15.2)
[2017-11-23 05:32] LABS: CHLORIDE 98 mmol/L (98-107)
[2017-11-23 05:43] LABS: ALANINE AMINOTRANSFERASE 11 U/L (12-78); ALBUMIN 2.4 g/dL (3.4-5.0); ALKALINE PHOSPHATASE 64 U/L (45-117); ANION GAP 10 mmol/L (5-15); BILIRUBIN,TOTAL 0.7 mg/dL (0.2-1.0); CALCIUM 8.2 mg/dL (8.5-10.1)
[2017-11-23 08:11] VITALS: BP 136/49
[2017-11-23] MEDS: INSULIN LISPRO 100 UNITS/ML, PEN SQ-INSULIN SCH ×4 (08:37→21:00)
[2017-11-23] MEDS: SODIUM CHLORIDE FLUSH 10ML SYR IVF SCH ×2 (08:37→21:00)
[2017-11-23] MEDS: SENNA/DOCUSATE TABLET PO SCH (08:38)
[2017-11-23] MEDS: TICAGRELOR 90 MG TABLET PO SCH ×2 (08:38→21:13)
[2017-11-23] MEDS: OMEPRAZOLE 20 MG CAPSULE.DR PO SCH (08:38)
[2017-11-23] MEDS: SERTRALINE 50MG TABLET PO SCH (08:38)
[2017-11-23] MEDS: DOCUSATE 100 MG CAPSULE PO SCH ×2 (08:38→21:13)
[2017-11-23] MEDS: ISOSORBIDE MONONITRATE ER 30 MG TABLET PO SCH (08:39)
[2017-11-23] MEDS: PHENAZOPYRIDINE 200 MG TABLET PO SCH ×3 (09:00→21:13)
[2017-11-23] MEDS: PREGABALIN 75 MG CAPSULE PO SCH ×2 (09:00→21:13)
[2017-11-23] MEDS ORDERED: PREGABALIN 75 MG CAPSULE PO SCH (09:00)
[2017-11-23] MEDS ORDERED: ALBUMIN HUMAN 25% 100 ML IV PRN (11:00)
[2017-11-23 14:48] VITALS: BP 156/74
[2017-11-23] MEDS: CEFTRIAXONE PMX 1GM/50ML 50 ML IV SCH (17:30)
[2017-11-23 18:45] VITALS: BP 114/66
[2017-11-23] MEDS: INSULIN GLARGINE 100 UNITS/ML, PEN SQ-INSULIN SCH (21:12)
[2017-11-23] MEDS: ATORVASTATIN 80 MG TABLET PO SCH (21:13)
[2017-11-24 01:15] VITALS: BP 102/64
[2017-11-24 05:22] LABS: INTERNATIONAL NORMALIZED RATIO 4.67 (0.93-1.1); PROTHROMBIN TIME 46.7 Seconds (9.6-11.5)
[2017-11-24 05:28] LABS: ANION GAP 8 mmol/L (5-15); CALCIUM 7.7 mg/dL (8.5-10.1); CHLORIDE 103 mmol/L (98-107)
[2017-11-24 05:31] LABS: CREATININE 6.86 mg/dL (0.55-1.02)
[2017-11-24] MEDS: INSULIN LISPRO 100 UNITS/ML, PEN SQ-INSULIN SCH ×4 (07:00→20:55)
[2017-11-24 07:21] VITALS: BP 92/63
[2017-11-24] MEDS: PHENAZOPYRIDINE 200 MG TABLET PO SCH ×3 (07:51→21:05)
[2017-11-24] MEDS: DOCUSATE 100 MG CAPSULE PO SCH ×2 (07:54→21:06)
[2017-11-24] MEDS: SENNA/DOCUSATE TABLET PO SCH (07:54)
[2017-11-24] MEDS: OMEPRAZOLE 20 MG CAPSULE.DR PO SCH (07:54)
[2017-11-24] MEDS: ISOSORBIDE MONONITRATE ER 30 MG TABLET PO SCH (07:56)
[2017-11-24] MEDS: SERTRALINE 50MG TABLET PO SCH (07:56)
[2017-11-24] MEDS: SODIUM CHLORIDE FLUSH 10ML SYR IVF SCH ×2 (07:57→21:05)
[2017-11-24] MEDS: PREGABALIN 75 MG CAPSULE PO SCH ×2 (07:57→21:06)
[2017-11-24] MEDS: TICAGRELOR 90 MG TABLET PO SCH ×2 (07:57→21:06)
[2017-11-24] MEDS ORDERED: CEFT1FRO2 IV (08:23)
[2017-11-24 08:24] LABS: BASOPHILS # (AUTO) 0.02 x10^3/uL (0-0.1); BASOPHILS % (AUTO) 0 % (0-1); EOSINOPHILS # (AUTO) 0.14 x10^3/uL (0-0.4); EOSINOPHILS % (AUTO) 3 % (1-7); LYMPHOCYTES % (AUTO) 16 % (22-44); MD NO; MEAN CORPUSCULAR HEMOGLOBIN 33.9 pg (27.0-34.8); MEAN CORPUSCULAR HGB CONC 32.9 g/dL (32.4-35.8); MEAN PLATELET VOLUME 8.3 fL (7.4-10.4); MONOCYTES # (AUTO) 0.47 x10^3/uL (0.2-0.8); MONOCYTES % (AUTO) 8 % (2-9); NEUTROPHILS # (AUTO) 4.11 x10^3/uL (1.8-6.8); NEUTROPHILS % (AUTO) 73 % (42-75); PLATELET COUNT 120 x10^3/uL (130-400); RED BLOOD COUNT 2.61 x10^6/uL (3.82-5.3)
[2017-11-24] MEDS ORDERED: PREG75CA PO (12:26)
[2017-11-24] MEDS ORDERED: PHENAZOPYRIDINE 100 MG TABLET ONE (17:42)
[2017-11-24 20:36] VITALS: BP 147/55
[2017-11-24] MEDS: CEFTRIAXONE PMX 1GM/50ML 50 ML IV SCH (21:04)
[2017-11-24] MEDS: ATORVASTATIN 80 MG TABLET PO SCH (21:05)
[2017-11-24] MEDS: INSULIN GLARGINE 100 UNITS/ML, PEN SQ-INSULIN SCH (21:07)
[2017-11-25 04:35] VITALS: BP 143/54
[2017-11-25 07:00] VITALS: BP 97/29
[2017-11-25] MEDS: INSULIN LISPRO 100 UNITS/ML, PEN SQ-INSULIN SCH ×4 (07:00→21:00)
[2017-11-25] MEDS: SERTRALINE 50MG TABLET PO SCH (07:56)
[2017-11-25] MEDS: SENNA/DOCUSATE TABLET PO SCH (07:56)
[2017-11-25] MEDS: OMEPRAZOLE 20 MG CAPSULE.DR PO SCH (07:56)
[2017-11-25] MEDS: DOCUSATE 100 MG CAPSULE PO SCH ×2 (07:56→21:31)
[2017-11-25] MEDS: ISOSORBIDE MONONITRATE ER 30 MG TABLET PO SCH (07:56)
[2017-11-25] MEDS: PREGABALIN 75 MG CAPSULE PO SCH ×2 (07:56→21:31)
[2017-11-25] MEDS: TICAGRELOR 90 MG TABLET PO SCH ×2 (07:56→21:31)
[2017-11-25] MEDS: PHENAZOPYRIDINE 200 MG TABLET PO SCH ×3 (07:56→21:31)
[2017-11-25] MEDS: SODIUM CHLORIDE FLUSH 10ML SYR IVF SCH ×2 (07:57→21:31)
[2017-11-25 08:24] VITALS: BP 124/35
[2017-11-25 14:17] VITALS: BP 119/43
[2017-11-25 19:45] VITALS: BP 109/45
[2017-11-25] MEDS: CEFTRIAXONE PMX 1GM/50ML 50 ML IV SCH (21:31)
[2017-11-25] MEDS: ATORVASTATIN 80 MG TABLET PO SCH (21:31)
[2017-11-25] MEDS: INSULIN GLARGINE 100 UNITS/ML, PEN SQ-INSULIN SCH (21:32)
[2017-11-25] MEDS ORDERED: NITROGLYCERIN 0.4 MG BOTTLE (25 TABS) SL PRN (22:30)
[2017-11-25 23:19] LABS: TROPONIN I 0.026 ng/mL (0.000-0.045)
[2017-11-25] MEDS ORDERED: SODIUM CHLORIDE 0.9%, 500ML IVBOLUS ONE (23:30)
[2017-11-26 00:14] VITALS: BP 130/69
[2017-11-26 05:31] LABS: BASOPHILS # (AUTO) 0.03 x10^3/uL (0-0.1); BASOPHILS % (AUTO) 1 % (0-1); EOSINOPHILS # (AUTO) 0.12 x10^3/uL (0-0.4); EOSINOPHILS % (AUTO) 2 % (1-7); LYMPHOCYTES # (AUTO) 0.69 x10^3/uL (1-3.4); LYMPHOCYTES % (AUTO) 12 % (22-44); MD NO; MEAN CORPUSCULAR HEMOGLOBIN 33.7 pg (27.0-34.8); MEAN CORPUSCULAR HGB CONC 33.2 g/dL (32.4-35.8); MEAN CORPUSCULAR VOLUME 101.6 fL (80-100); MEAN PLATELET VOLUME 8.1 fL (7.4-10.4); MONOCYTES # (AUTO) 0.54 x10^3/uL (0.2-0.8); MONOCYTES % (AUTO) 10 % (2-9); NEUTROPHILS % (AUTO) 76 % (42-75); PLATELET COUNT 121 x10^3/uL (130-400); RED BLOOD COUNT 2.85 x10^6/uL (3.82-5.3); RED CELL DISTRIBUTION WIDTH 18.3 % (9.6-15.2)
[2017-11-26 05:46] LABS: INTERNATIONAL NORMALIZED RATIO 2.61 (0.93-1.1); PROTHROMBIN TIME 26.4 Seconds (9.6-11.5)
[2017-11-26 05:53] LABS: CHLORIDE 102 mmol/L (98-107)
[2017-11-26 05:54] LABS: ANION GAP 7 mmol/L (5-15); CALCIUM 8.1 mg/dL (8.5-10.1)
[2017-11-26 06:40] VITALS: BP 105/66
[2017-11-26] MEDS: INSULIN LISPRO 100 UNITS/ML, PEN SQ-INSULIN SCH ×4 (07:00→20:43)
[2017-11-26 08:16] LABS: TROPONIN I 0.016 ng/mL (0.000-0.045)
[2017-11-26] MEDS: SENNA/DOCUSATE TABLET PO SCH (10:30)
[2017-11-26] MEDS: PHENAZOPYRIDINE 200 MG TABLET PO SCH ×3 (10:30→20:40)
[2017-11-26] MEDS: OMEPRAZOLE 20 MG CAPSULE.DR PO SCH (10:30)
[2017-11-26] MEDS: SERTRALINE 50MG TABLET PO SCH (10:30)
[2017-11-26] MEDS: PREGABALIN 75 MG CAPSULE PO SCH ×2 (10:30→20:40)
[2017-11-26] MEDS: DOCUSATE 100 MG CAPSULE PO SCH ×2 (10:30→20:40)
[2017-11-26] MEDS: ISOSORBIDE MONONITRATE ER 30 MG TABLET PO SCH (10:31)
[2017-11-26] MEDS: TICAGRELOR 90 MG TABLET PO SCH ×2 (10:31→20:42)
[2017-11-26] MEDS: SODIUM CHLORIDE FLUSH 10ML SYR IVF SCH ×2 (10:32→20:41)
[2017-11-26 12:29] VITALS: BP 97/60
[2017-11-26 19:00] VITALS: BP 111/71
[2017-11-26] MEDS: ATORVASTATIN 80 MG TABLET PO SCH (20:40)
[2017-11-26] MEDS: CEFTRIAXONE PMX 1GM/50ML 50 ML IV SCH (20:40)
[2017-11-26] MEDS: INSULIN GLARGINE 100 UNITS/ML, PEN SQ-INSULIN SCH (20:43)
[2017-11-27 01:49] VITALS: BP 117/60
[2017-11-27 02:24] LABS: CLOSTRIDIUM DIFFICILE ANTIGEN NEGATIVE; CLOSTRIDIUM DIFFICILE TOXIN NEGATIVE (Negative)
[2017-11-27 04:43] LABS: BASOPHILS # (AUTO) 0.02 x10^3/uL (0-0.1); BASOPHILS % (AUTO) 0 % (0-1); EOSINOPHILS # (AUTO) 0.11 x10^3/uL (0-0.4); EOSINOPHILS % (AUTO) 1 % (1-7); LYMPHOCYTES # (AUTO) 0.69 x10^3/uL (1-3.4); LYMPHOCYTES % (AUTO) 9 % (22-44); MD NO; MEAN CORPUSCULAR HEMOGLOBIN 34.1 pg (27.0-34.8); MEAN CORPUSCULAR HGB CONC 33.2 g/dL (32.4-35.8); MEAN CORPUSCULAR VOLUME 102.6 fL (80-100); MONOCYTES # (AUTO) 0.62 x10^3/uL (0.2-0.8); MONOCYTES % (AUTO) 8 % (2-9); NEUTROPHILS # (AUTO) 6.17 x10^3/uL (1.8-6.8); NEUTROPHILS % (AUTO) 81 % (42-75); PLATELET COUNT 143 x10^3/uL (130-400); RED BLOOD COUNT 3.02 x10^6/uL (3.82-5.3)
[2017-11-27 04:46] LABS: ANION GAP 9 mmol/L (5-15); CALCIUM 8.2 mg/dL (8.5-10.1); CHLORIDE 101 mmol/L (98-107); CREATININE 7.39 mg/dL (0.55-1.02)
[2017-11-27 06:53] VITALS: BP 109/68
[2017-11-27] MEDS: TICAGRELOR 90 MG TABLET PO SCH (07:33)
[2017-11-27] MEDS: DOCUSATE 100 MG CAPSULE PO SCH (07:33)
[2017-11-27] MEDS: PHENAZOPYRIDINE 200 MG TABLET PO SCH ×2 (07:33→17:36)
[2017-11-27] MEDS: PREGABALIN 75 MG CAPSULE PO SCH (07:33)
[2017-11-27] MEDS: ISOSORBIDE MONONITRATE ER 30 MG TABLET PO SCH (07:34)
[2017-11-27] MEDS: SENNA/DOCUSATE TABLET PO SCH (07:34)
[2017-11-27] MEDS: INSULIN LISPRO 100 UNITS/ML, PEN SQ-INSULIN SCH ×3 (07:34→16:00)
[2017-11-27] MEDS: SERTRALINE 50MG TABLET PO SCH (07:34)
[2017-11-27] MEDS: OMEPRAZOLE 20 MG CAPSULE.DR PO SCH (07:34)
[2017-11-27] MEDS: SODIUM CHLORIDE FLUSH 10ML SYR IVF SCH (07:35)
[2017-11-27] MEDS: ALBUMIN HUMAN 25% 50 ML IV PRN ×2 (08:51→11:07)
[2017-11-27 12:53] VITALS: BP 121/66
[2017-11-28] MEDS ORDERED: PREGABALIN 75 MG CAPSULE PO SCH (09:00)
== END 2017-11-27 18:03 | disposition home or self-care (01) | DRG 682 ==
LOC: ED 15:19 → EDIP 16:28 → 3NE 17:44 → 4EST 11-24 15:30
PROVIDERS: ADMIT Internal Medicine; ATTEND Hospitalist
PROC: 0T9B70Z Drainage of Bladder with Drainage Device, Via Natural or Artificial Opening (ICD-10-PCS; principal; 2017-11-22)
PROC: 5A1D70Z Performance of Urinary Filtration, Intermittent, Less than 6 Hours Per Day (ICD-10-PCS; 2017-11-23)
PROC: 5A1D70Z Performance of Urinary Filtration, Intermittent, Less than 6 Hours Per Day (ICD-10-PCS; 2017-11-24)
PROC: 5A1D70Z Performance of Urinary Filtration, Intermittent, Less than 6 Hours Per Day (ICD-10-PCS; 2017-11-27)
DX: N17.9 Acute kidney failure, unspecified (principal); E43 Unspecified severe protein-calorie malnutrition; I13.2 Hypertensive heart and chronic kidney disease with heart failure and with stage 5 chronic kidney disease, or end stage renal disease; J96.11 Chronic respiratory failure with hypoxia; E11.21 Type 2 diabetes mellitus with diabetic nephropathy; I95.3 Hypotension of hemodialysis; E11.51 Type 2 diabetes mellitus with diabetic peripheral angiopathy without gangrene; E11.22 Type 2 diabetes mellitus with diabetic chronic kidney disease; E66.01 Morbid (severe) obesity due to excess calories; E87.1 Hypo-osmolality and hyponatremia; I50.32 Chronic diastolic (congestive) heart failure; I69.354 Hemiplegia and hemiparesis following cerebral infarction affecting left non-dominant side; S39.012A Strain of muscle, fascia and tendon of lower back, initial encounter; N18.6 End stage renal disease; N25.81 Secondary hyperparathyroidism of renal origin; W18.39XA Other fall on same level, initial encounter; N30.91 Cystitis, unspecified with hematuria; I25.2 Old myocardial infarction; I25.10 Atherosclerotic heart disease of native coronary artery without angina pectoris; Z79.4 Long term (current) use of insulin; D50.9 Iron deficiency anemia, unspecified; D63.1 Anemia in chronic kidney disease; E55.9 Vitamin D deficiency, unspecified; E78.5 Hyperlipidemia, unspecified; G89.29 Other chronic pain; I44.7 Left bundle-branch block, unspecified; K80.20 Calculus of gallbladder without cholecystitis without obstruction; F32.9 Major depressive disorder, single episode, unspecified; F41.9 Anxiety disorder, unspecified; M10.9 Gout, unspecified; N25.0 Renal osteodystrophy; T45.515A Adverse effect of anticoagulants, initial encounter; Z66 Do not resuscitate; Z79.01 Long term (current) use of anticoagulants; Z82.49 Family history of ischemic heart disease and other diseases of the circulatory system; Z85.42 Personal history of malignant neoplasm of other parts of uterus; Z86.711 Personal history of pulmonary embolism; Z86.718 Personal history of other venous thrombosis and embolism; Z87.441 Personal history of nephrotic syndrome; Z90.3 Acquired absence of stomach [part of]; Z90.710 Acquired absence of both cervix and uterus; Z91.15 Patient's noncompliance with renal dialysis; Z95.5 Presence of coronary angioplasty implant and graft; Z98.84 Bariatric surgery status; Z99.2 Dependence on renal dialysis; Z99.81 Dependence on supplemental oxygen; Y93.89 Activity, other specified; Y92.89 Other specified places as the place of occurrence of the external cause
CPT/HCPCS: 36415; 74176; 80048; 80053; 81001; 82010; 82803; 82962; 83735; 84100; 84484; 85025; 85610; 87077; 87086; 87186; 87324; 93005; 96374; J0696; J0881; J2405; P9047; J1815; J7040

== ENCOUNTER 2017-11-28 12:49 | Inpatient (IN) | payer OTHER ==
[~2017-11-28] VITALS: Ht 165.1 cm; Wt 84.2 kg
[~2017-11-28 12:49] MED LIST changes: +CEFT1FRO2 IV
[2017-11-28] MEDS ORDERED: ASPIRIN 81 MG TABLET CHEW PO ONE (13:30)
[2017-11-28] MEDS ORDERED: SODIUM CHLORIDE 0.9% 1,000ML IVBOLUS ONE (13:30)
[2017-11-28] MEDS ORDERED: SODIUM CHLORIDE FLUSH 10ML SYR IVF ONE (13:30)
[2017-11-28 13:37] LABS: BASOPHILS # (AUTO) 0.02 x10^3/uL (0-0.1); BASOPHILS % (AUTO) 0 % (0-1); EOSINOPHILS % (AUTO) 1 % (1-7); LYMPHOCYTES # (AUTO) 0.73 x10^3/uL (1-3.4); LYMPHOCYTES % (AUTO) 9 % (22-44); MD NO; MEAN CORPUSCULAR HEMOGLOBIN 32.9 pg (27.0-34.8); MEAN CORPUSCULAR HGB CONC 32.2 g/dL (32.4-35.8); MEAN CORPUSCULAR VOLUME 102.1 fL (80-100); MONOCYTES # (AUTO) 0.66 x10^3/uL (0.2-0.8); MONOCYTES % (AUTO) 8 % (2-9); NEUTROPHILS # (AUTO) 6.83 x10^3/uL (1.8-6.8); NEUTROPHILS % (AUTO) 82 % (42-75); PLATELET COUNT 148 x10^3/uL (130-400); RED CELL DISTRIBUTION WIDTH 18.2 % (9.6-15.2)
[2017-11-28 13:47] LABS: ALBUMIN 2.9 g/dL (3.4-5.0); ANION GAP 12 mmol/L (5-15); CALCIUM 8.6 mg/dL (8.5-10.1); CHLORIDE 101 mmol/L (98-107)
[2017-11-28 13:52] LABS: ALANINE AMINOTRANSFERASE 7 U/L (12-78); ALKALINE PHOSPHATASE 71 U/L (45-117); BILIRUBIN,TOTAL 0.7 mg/dL (0.2-1.0); CREATININE 5.82 mg/dL (0.55-1.02); TOTAL PROTEIN 6.5 g/dL (6.4-8.2); TROPONIN I 0.025 ng/mL (0.000-0.045)
[2017-11-28] MEDS ORDERED: hydrALAzine 20 MG/ML, 1ML IVPush PRN (15:30)
[2017-11-28] MEDS ORDERED: DOCUSATE 100 MG CAPSULE PO PRN (15:30)
[2017-11-28] MEDS ORDERED: GLUCAGON 1 MG IM PRN (15:30)
[2017-11-28] MEDS ORDERED: DEXTROSE 50%, 50ML SYRINGE IVPush PRN (15:30)
[2017-11-28] MEDS ORDERED: DEXTROSE 4 GM TAB.CHEW PO PRN (15:30)
[2017-11-28] MEDS ORDERED: POLYETHYLENE GLYCOL 17 GM PACKET PO PRN (15:30)
[2017-11-28] MEDS ORDERED: ACETAMINOPHEN 325 MG TABLET PO PRN (15:30)
[2017-11-28] MEDS ORDERED: BISACODYL 10 MG SUPP PR PRN (15:30)
[2017-11-28] MEDS ORDERED: ONDANSETRON 2MG/ML, 2ML IVPush PRN (15:30)
[2017-11-28] MEDS ORDERED: ONDANSETRON ODT 4 MG PO PRN (15:30)
[2017-11-28] MEDS ORDERED: DARBEPOETIN 60 MCG/ML SQ SCH (15:30)
[2017-11-28 15:48] LABS: INTERNATIONAL NORMALIZED RATIO 1.49 (0.93-1.1); PROTHROMBIN TIME 15.2 Seconds (9.6-11.5)
[2017-11-28] MEDS: INSULIN LISPRO 100 UNITS/ML, PEN SQ-INSULIN SCH ×2 (16:00→21:00)
[2017-11-28 16:46] VITALS: BP 91/49
[2017-11-28] MEDS: SEVELAMER HCL 800MG TABLET PO SCH (17:09)
[2017-11-28] MEDS ORDERED: WARFARIN 5 MG TABLET PO-COUM ONE (18:00)
[2017-11-28 19:47] LABS: TROPONIN I 0.016 ng/mL (0.000-0.045)
[2017-11-28 20:50] VITALS: BP 117/73
[2017-11-28] MEDS: PREGABALIN 75 MG CAPSULE PO SCH (22:17)
[2017-11-28] MEDS: SODIUM CHLORIDE FLUSH 10ML SYR IVF SCH (22:17)
[2017-11-28] MEDS: ATORVASTATIN 80 MG TABLET PO SCH (22:18)
[2017-11-28] MEDS: INSULIN GLARGINE 100 UNITS/ML, PEN SQ-INSULIN SCH (22:18)
[2017-11-28] MEDS: TICAGRELOR 90 MG TABLET PO SCH (22:18)
[2017-11-29 00:19] VITALS: BP 127/70
[2017-11-29 02:03] LABS: TROPONIN I 0.019 ng/mL (0.000-0.045)
[2017-11-29 05:14] LABS: BASOPHILS # (AUTO) 0.02 x10^3/uL (0-0.1); BASOPHILS % (AUTO) 0 % (0-1); EOSINOPHILS # (AUTO) 0.08 x10^3/uL (0-0.4); EOSINOPHILS % (AUTO) 1 % (1-7); LYMPHOCYTES # (AUTO) 0.87 x10^3/uL (1-3.4); LYMPHOCYTES % (AUTO) 12 % (22-44); MD NO; MEAN CORPUSCULAR HGB CONC 32.5 g/dL (32.4-35.8); MEAN CORPUSCULAR VOLUME 101.6 fL (80-100); MEAN PLATELET VOLUME 8.1 fL (7.4-10.4); MONOCYTES # (AUTO) 0.59 x10^3/uL (0.2-0.8); MONOCYTES % (AUTO) 8 % (2-9); NEUTROPHILS # (AUTO) 5.88 x10^3/uL (1.8-6.8); NEUTROPHILS % (AUTO) 79 % (42-75); PLATELET COUNT 155 x10^3/uL (130-400); RED BLOOD COUNT 2.83 x10^6/uL (3.82-5.3)
[2017-11-29 05:22] LABS: ANION GAP 9 mmol/L (5-15); CALCIUM 8.8 mg/dL (8.5-10.1); CHLORIDE 102 mmol/L (98-107)
[2017-11-29 05:30] LABS: INTERNATIONAL NORMALIZED RATIO 1.34 (0.93-1.1); PROTHROMBIN TIME 13.7 Seconds (9.6-11.5)
[2017-11-29] MEDS: INSULIN LISPRO 100 UNITS/ML, PEN SQ-INSULIN SCH ×4 (07:00→21:00)
[2017-11-29 07:05] VITALS: BP 119/50
[2017-11-29] MEDS: SEVELAMER HCL 800MG TABLET PO SCH ×3 (08:33→17:00)
[2017-11-29] MEDS: SERTRALINE 50MG TABLET PO SCH (08:34)
[2017-11-29] MEDS: TICAGRELOR 90 MG TABLET PO SCH ×2 (08:34→21:59)
[2017-11-29] MEDS: PREGABALIN 75 MG CAPSULE PO SCH ×2 (08:34→21:59)
[2017-11-29] MEDS: OMEPRAZOLE 20 MG CAPSULE.DR PO SCH (08:34)
[2017-11-29] MEDS: SODIUM CHLORIDE FLUSH 10ML SYR IVF SCH ×2 (08:34→22:00)
[2017-11-29] MEDS: LOSARTAN 25MG TABLET PO SCH (08:34)
[2017-11-29] MEDS: SENNA/DOCUSATE TABLET PO SCH (08:35)
[2017-11-29] MEDS: ISOSORBIDE MONONITRATE ER 30 MG TABLET PO SCH (08:36)
[2017-11-29] MEDS ORDERED: [UNRECOGNIZED DRUG - REMARK] XX SCH (09:00)
[2017-11-29] MEDS ORDERED: DARBEPOETIN 60 MCG/ML SQ SCH (09:00)
[2017-11-29] MEDS ORDERED: LOSARTAN 25MG TABLET PO SCH (09:00)
[2017-11-29] MEDS ORDERED: LOSA25TA2 PO (12:23)
[2017-11-29 13:25] VITALS: BP 91/51
[2017-11-29] MEDS ORDERED: WARFARIN PO (14:20)
[2017-11-29] MEDS ORDERED: WARFARIN 5 MG TABLET PO-COUM SCH (18:00)
[2017-11-29 18:58] VITALS: BP 97/58
[2017-11-29] MEDS: ATORVASTATIN 80 MG TABLET PO SCH (21:59)
[2017-11-29] MEDS: INSULIN GLARGINE 100 UNITS/ML, PEN SQ-INSULIN SCH (21:59)
[2017-11-30 01:27] VITALS: BP 136/69
[2017-11-30 03:09] LABS: CLOSTRIDIUM DIFFICILE ANTIGEN NEGATIVE; CLOSTRIDIUM DIFFICILE TOXIN NEGATIVE (Negative)
[2017-11-30 05:36] LABS: INTERNATIONAL NORMALIZED RATIO 1.58 (0.93-1.1); PROTHROMBIN TIME 16.1 Seconds (9.6-11.5)
[2017-11-30] MEDS: INSULIN LISPRO 100 UNITS/ML, PEN SQ-INSULIN SCH ×4 (07:00→21:00)
[2017-11-30 07:17] VITALS: BP 132/73
[2017-11-30] MEDS: OMEPRAZOLE 20 MG CAPSULE.DR PO SCH (07:30)
[2017-11-30] MEDS: SEVELAMER CARBONATE 800MG TAB PO SCH ×3 (08:00→17:00)
[2017-11-30] MEDS: SODIUM CHLORIDE FLUSH 10ML SYR IVF SCH ×2 (08:58→21:23)
[2017-11-30] MEDS: SERTRALINE 50MG TABLET PO SCH (09:00)
[2017-11-30] MEDS: SENNA/DOCUSATE TABLET PO SCH (09:00)
[2017-11-30] MEDS: LOSARTAN 25MG TABLET PO SCH (09:00)
[2017-11-30] MEDS: TICAGRELOR 90 MG TABLET PO SCH ×2 (09:00→21:21)
[2017-11-30] MEDS: ISOSORBIDE MONONITRATE ER 30 MG TABLET PO SCH (09:00)
[2017-11-30] MEDS: PREGABALIN 75 MG CAPSULE PO SCH ×2 (09:00→21:21)
[2017-11-30] MEDS ORDERED: HEPARIN 1,000 UNITS/ML, 10ML ONE (13:10)
[2017-11-30] MEDS ORDERED: THROMBIN 5,000 UNIT VIAL TP ONE (13:10)
[2017-11-30] MEDS ORDERED: PROTAMINE SULFATE 10 MG/ML, 5ML ONE (13:10)
[2017-11-30] MEDS ORDERED: BUPIVACAINE/PF 0.25% ONE (13:10)
[2017-11-30 14:00] VITALS: BP 131/69
[2017-11-30] MEDS ORDERED: FENTANYL PF 100 MCG/2ML ONE (14:52)
[2017-11-30] MEDS ORDERED: WARFARIN 5 MG TABLET PO-COUM SCH (18:00)
[2017-11-30 19:16] VITALS: BP 115/65
[2017-11-30] MEDS: ATORVASTATIN 80 MG TABLET PO SCH (21:21)
[2017-11-30] MEDS: INSULIN GLARGINE 100 UNITS/ML, PEN SQ-INSULIN SCH (21:22)
[2017-12-01 00:03] VITALS: BP 116/69
[2017-12-01 06:59] VITALS: BP 120/72
[2017-12-01] MEDS: INSULIN LISPRO 100 UNITS/ML, PEN SQ-INSULIN SCH ×2 (07:00→11:40)
[2017-12-01] MEDS: OMEPRAZOLE 20 MG CAPSULE.DR PO SCH (07:30)
[2017-12-01 07:47] LABS: INTERNATIONAL NORMALIZED RATIO 2.31 (0.93-1.1); PROTHROMBIN TIME 23.4 Seconds (9.6-11.5)
[2017-12-01] MEDS: SENNA/DOCUSATE TABLET PO SCH (09:00)
[2017-12-01 09:15] LABS: ALANINE AMINOTRANSFERASE 9 U/L (12-78); ALBUMIN 2.7 g/dL (3.4-5.0); ANION GAP 11 mmol/L (5-15); CALCIUM 8.2 mg/dL (8.5-10.1); CHLORIDE 104 mmol/L (98-107); CREATININE 8.62 mg/dL (0.55-1.02)
[2017-12-01 09:17] LABS: ALKALINE PHOSPHATASE 70 U/L (45-117); BILIRUBIN,TOTAL 0.5 mg/dL (0.2-1.0); TOTAL PROTEIN 6.3 g/dL (6.4-8.2)
[2017-12-01] MEDS: SEVELAMER CARBONATE 800MG TAB PO SCH ×2 (12:00→12:17)
[2017-12-01] MEDS: SODIUM CHLORIDE FLUSH 10ML SYR IVF SCH (12:15)
[2017-12-01] MEDS: LOSARTAN 25MG TABLET PO SCH (12:15)
[2017-12-01] MEDS: ISOSORBIDE MONONITRATE ER 30 MG TABLET PO SCH (12:15)
[2017-12-01] MEDS: TICAGRELOR 90 MG TABLET PO SCH (12:15)
[2017-12-01] MEDS: SERTRALINE 50MG TABLET PO SCH (12:16)
[2017-12-01] MEDS: PREGABALIN 75 MG CAPSULE PO SCH (12:16)
[2017-12-01] MEDS ORDERED: WARFARIN 2.5 MG TABLET PO-COUM SCH (18:00)
== END 2017-12-01 15:20 | DRG 314 ==
LOC: ED 14:10 → EDIP 14:11 → ED 14:29 → 5SO 15:54 → 4WST 11-29 17:37
PROVIDERS: ADMIT Hospitalist; ATTEND Hospitalist
PROC: 5A1D70Z Performance of Urinary Filtration, Intermittent, Less than 6 Hours Per Day (ICD-10-PCS; principal; 2017-11-29)
PROC: B51W1ZZ Fluoroscopy of Dialysis Shunt/Fistula using Low Osmolar Contrast (ICD-10-PCS; 2017-11-30)
PROC: 5A1D70Z Performance of Urinary Filtration, Intermittent, Less than 6 Hours Per Day (ICD-10-PCS; 2017-12-01)
DX: T82.858A Stenosis of other vascular prosthetic devices, implants and grafts, initial encounter (principal); N18.6 End stage renal disease; E43 Unspecified severe protein-calorie malnutrition; I13.2 Hypertensive heart and chronic kidney disease with heart failure and with stage 5 chronic kidney disease, or end stage renal disease; I50.32 Chronic diastolic (congestive) heart failure; J96.11 Chronic respiratory failure with hypoxia; N25.81 Secondary hyperparathyroidism of renal origin; I69.354 Hemiplegia and hemiparesis following cerebral infarction affecting left non-dominant side; N39.0 Urinary tract infection, site not specified; E11.22 Type 2 diabetes mellitus with diabetic chronic kidney disease; D63.1 Anemia in chronic kidney disease; N25.0 Renal osteodystrophy; E55.9 Vitamin D deficiency, unspecified; E66.01 Morbid (severe) obesity due to excess calories; Z68.30 Body mass index [BMI] 30.0-30.9, adult; E11.21 Type 2 diabetes mellitus with diabetic nephropathy; E11.51 Type 2 diabetes mellitus with diabetic peripheral angiopathy without gangrene; E78.5 Hyperlipidemia, unspecified; F32.9 Major depressive disorder, single episode, unspecified; Z66 Do not resuscitate; F41.9 Anxiety disorder, unspecified; I25.10 Atherosclerotic heart disease of native coronary artery without angina pectoris; I25.2 Old myocardial infarction; I45.4 Nonspecific intraventricular block; M10.9 Gout, unspecified; Y71.2 Prosthetic and other implants, materials and accessory cardiovascular devices associated with adverse incidents; Y83.2 Surgical operation with anastomosis, bypass or graft as the cause of abnormal reaction of the patient, or of later complication, without mention of misadventure at the time of the procedure; Z79.01 Long term (current) use of anticoagulants; Z79.4 Long term (current) use of insulin; Z82.49 Family history of ischemic heart disease and other diseases of the circulatory system; Z85.42 Personal history of malignant neoplasm of other parts of uterus; Z86.711 Personal history of pulmonary embolism; Z86.718 Personal history of other venous thrombosis and embolism; Z87.441 Personal history of nephrotic syndrome; Z90.3 Acquired absence of stomach [part of]; Z90.710 Acquired absence of both cervix and uterus; Z99.2 Dependence on renal dialysis; Z98.84 Bariatric surgery status; Z95.5 Presence of coronary angioplasty implant and graft; Z99.81 Dependence on supplemental oxygen
CPT/HCPCS: 36415; 71045; 80048; 80053; 82962; 83735; 84100; 84484; 85025; 85610; 87324; 93005; 93990; 99285; J0881; J1644; J2720; J3010; J3490; J1815

== ENCOUNTER 2018-01-28 14:37 | Observation (INO) | payer OTHER ==
[~2018-01-28] VITALS: Ht 154.9 cm; Wt 79.5 kg
[~2018-01-28 14:37] MED LIST changes: +ACID1TAB7 PO; +CLON0.1T PO; +MIDO5TAB PO; +QUET100T PO; +SERT50TA5 PO; +SULF1TAB24 PO; +WARF2TAB PO-COUM; +WARFARIN PO
[2018-01-28] MEDS ORDERED: SODIUM CHLORIDE FLUSH 10ML SYR IVF ONE (15:00)
[2018-01-28 15:05] LABS: BASOPHILS # (AUTO) 0.04 x10^3/uL (0-0.1); BASOPHILS % (AUTO) 1 % (0-1); EOSINOPHILS # (AUTO) 0.12 x10^3/uL (0-0.4); EOSINOPHILS % (AUTO) 2 % (1-7); LYMPHOCYTES # (AUTO) 0.89 x10^3/uL (1-3.4); LYMPHOCYTES % (AUTO) 17 % (22-44); MD NO; MEAN CORPUSCULAR HEMOGLOBIN 34.3 pg (27.0-34.8); MEAN CORPUSCULAR HGB CONC 32.7 g/dL (32.4-35.8); MEAN PLATELET VOLUME 8.8 fL (7.4-10.4); MONOCYTES % (AUTO) 11 % (2-9); NEUTROPHILS # (AUTO) 3.61 x10^3/uL (1.8-6.8); NEUTROPHILS % (AUTO) 69 % (42-75); PLATELET COUNT 144 x10^3/uL (130-400); RED BLOOD COUNT 3.17 x10^6/uL (3.82-5.3); RED CELL DISTRIBUTION WIDTH 17.4 % (9.6-15.2)
[2018-01-28 15:12] LABS: INTERNATIONAL NORMALIZED RATIO 1.89 (0.93-1.1); PROTHROMBIN TIME 19.2 Seconds (9.6-11.5)
[2018-01-28 15:13] LABS: ALBUMIN 3.8 g/dL (3.4-5.0); ANION GAP 8 mmol/L (5-15); CALCIUM 9.1 mg/dL (8.5-10.1); CHLORIDE 106 mmol/L (98-107); CREATININE 5.19 mg/dL (0.55-1.02)
[2018-01-28 15:18] LABS: TROPONIN I 0.448 ng/mL (0.000-0.045)
[2018-01-28] MEDS ORDERED: ACETAMINOPHEN 325 MG TABLET PO PRN (17:00)
[2018-01-28] MEDS ORDERED: LABETALOL 5MG/ML, 20ML IVPush PRN (17:00)
[2018-01-28] MEDS ORDERED: hydrALAzine 20 MG/ML, 1ML IVPush PRN (17:00)
[2018-01-28] MEDS ORDERED: NITROGLYCERIN 0.4 MG BOTTLE (25 TABS) SL PRN (17:00)
[2018-01-28 17:30] VITALS: BP 149/82
[2018-01-28] MEDS ORDERED: DEXTROSE 4 GM TAB.CHEW PO PRN (17:30)
[2018-01-28] MEDS ORDERED: POLYETHYLENE GLYCOL 17 GM PACKET PO PRN (17:30)
[2018-01-28] MEDS ORDERED: GLUCAGON 1 MG IM PRN (17:30)
[2018-01-28] MEDS ORDERED: DEXTROSE 50%, 50ML SYRINGE IVPush PRN (17:30)
[2018-01-28 17:33] LABS: TROPONIN I 0.468 ng/mL (0.000-0.045)
[2018-01-28] MEDS ORDERED: WARFARIN 3 MG TABLET PO-COUM ONE (18:00)
[2018-01-28] MEDS: HEPARIN 5,000 UNITS/ML, 1ML SQ SCH (18:22)
[2018-01-28 19:02] VITALS: BP 127/73
[2018-01-28] MEDS ORDERED: ATORVASTATIN 80 MG TABLET PO SCH (21:00)
[2018-01-28] MEDS ORDERED: QUETIAPINE 25MG TABLET PO SCH (21:00)
[2018-01-28] MEDS ORDERED: INSULIN GLARGINE 100 UNITS/ML, PEN SQ-INSULIN SCH (21:00)
[2018-01-28] MEDS: LACTOBACILLUS CHEW TABLET PO SCH (22:24)
[2018-01-28] MEDS: SODIUM CHLORIDE FLUSH 10ML SYR IVF SCH (22:24)
[2018-01-28] MEDS: MIDODRINE 5 MG TABLET PO SCH (22:25)
[2018-01-28] MEDS: PREGABALIN 75 MG CAPSULE PO SCH (22:25)
[2018-01-28] MEDS: INSULIN LISPRO 100 UNITS/ML, PEN SQ-INSULIN SCH (22:26)
[2018-01-28 23:34] LABS: TROPONIN I 0.471 ng/mL (0.000-0.045)
[2018-01-29 02:19] VITALS: BP 90/54
[2018-01-29 02:41] VITALS: BP 98/64
[2018-01-29] MEDS: HEPARIN 5,000 UNITS/ML, 1ML SQ SCH ×2 (02:45→09:30)
[2018-01-29 05:16] LABS: BASOPHILS # (AUTO) 0.06 x10^3/uL (0-0.1); BASOPHILS % (AUTO) 1 % (0-1); EOSINOPHILS # (AUTO) 0.18 x10^3/uL (0-0.4); EOSINOPHILS % (AUTO) 4 % (1-7); LYMPHOCYTES # (AUTO) 1.58 x10^3/uL (1-3.4); LYMPHOCYTES % (AUTO) 31 % (22-44); MD NO; MEAN CORPUSCULAR HEMOGLOBIN 34.2 pg (27.0-34.8); MEAN CORPUSCULAR HGB CONC 32.4 g/dL (32.4-35.8); MEAN CORPUSCULAR VOLUME 105.5 fL (80-100); MEAN PLATELET VOLUME 9.1 fL (7.4-10.4); MONOCYTES # (AUTO) 0.61 x10^3/uL (0.2-0.8); MONOCYTES % (AUTO) 12 % (2-9); NEUTROPHILS % (AUTO) 53 % (42-75); PLATELET COUNT 140 x10^3/uL (130-400); RED BLOOD COUNT 3.08 x10^6/uL (3.82-5.3); RED CELL DISTRIBUTION WIDTH 18.4 % (9.6-15.2)
[2018-01-29 05:29] LABS: ANION GAP 9 mmol/L (5-15); CALCIUM 9.3 mg/dL (8.5-10.1); CHLORIDE 106 mmol/L (98-107)
[2018-01-29 05:41] LABS: CREATININE 6.15 mg/dL (0.55-1.02)
[2018-01-29] MEDS ORDERED: ASPIRIN 81 MG TABLET EC PO SCH (06:00)
[2018-01-29] MEDS ORDERED: ASPIRIN 325 MG TABLET EC PO SCH (06:00)
[2018-01-29] MEDS: INSULIN LISPRO 100 UNITS/ML, PEN SQ-INSULIN SCH ×3 (07:00→16:00)
[2018-01-29 07:25] VITALS: BP 106/67
[2018-01-29] MEDS ORDERED: OMEPRAZOLE 20 MG CAPSULE.DR PO SCH (07:30)
[2018-01-29 08:11] LABS: INTERNATIONAL NORMALIZED RATIO 2.05 (0.93-1.1); PROTHROMBIN TIME 20.8 Seconds (9.6-11.5)
[2018-01-29] MEDS ORDERED: SENNA/DOCUSATE TABLET PO SCH (09:00)
[2018-01-29] MEDS ORDERED: ISOSORBIDE MONONITRATE ER 30 MG TABLET PO SCH (09:00)
[2018-01-29] MEDS ORDERED: SERTRALINE 50MG TABLET PO SCH (09:00)
[2018-01-29] MEDS: PREGABALIN 75 MG CAPSULE PO SCH (09:27)
[2018-01-29] MEDS: LACTOBACILLUS CHEW TABLET PO SCH ×2 (09:27→17:51)
[2018-01-29] MEDS: MIDODRINE 5 MG TABLET PO SCH (09:29)
[2018-01-29] MEDS: SODIUM CHLORIDE FLUSH 10ML SYR IVF SCH (09:31)
[2018-01-29 13:58] VITALS: BP 108/67
[2018-01-29] MEDS ORDERED: WARFARIN 3 MG TABLET PO-COUM ONE (18:00)
== END 2018-01-29 19:11 | disposition home health service (06) ==
LOC: ED 16:36 → 5SO 16:59
PROVIDERS: ADMIT Hospitalist; ATTEND Hospitalist
DX: R07.9 Chest pain, unspecified (principal); I13.2 Hypertensive heart and chronic kidney disease with heart failure and with stage 5 chronic kidney disease, or end stage renal disease; I50.32 Chronic diastolic (congestive) heart failure; E11.22 Type 2 diabetes mellitus with diabetic chronic kidney disease; E11.51 Type 2 diabetes mellitus with diabetic peripheral angiopathy without gangrene; E78.5 Hyperlipidemia, unspecified; I25.10 Atherosclerotic heart disease of native coronary artery without angina pectoris; I25.2 Old myocardial infarction; I25.5 Ischemic cardiomyopathy; M10.9 Gout, unspecified; N18.6 End stage renal disease; E66.9 Obesity, unspecified; E43 Unspecified severe protein-calorie malnutrition; D63.8 Anemia in other chronic diseases classified elsewhere; Z82.49 Family history of ischemic heart disease and other diseases of the circulatory system; Z87.441 Personal history of nephrotic syndrome; Z99.2 Dependence on renal dialysis; Z79.01 Long term (current) use of anticoagulants; Z79.82 Long term (current) use of aspirin; Z79.4 Long term (current) use of insulin; Z85.42 Personal history of malignant neoplasm of other parts of uterus; Z86.718 Personal history of other venous thrombosis and embolism
CPT/HCPCS: 36415; 71045; 80048; 82040; 82962; 83036; 83735; 84100; 84443; 84484; 85025; 85610; 85730; 93005; 96372; 97162; 97166; 99285; G0378; J1644; J1815